=== PATIENT | female | born 1930 | race Caucasian/White ===

== ENCOUNTER 2017-01-15 10:48 | Inpatient (IN) ==
[2017-01-15] MEDS ORDERED: methylPREDNISolone SOD SUC 125 MG/2 ML VIAL IV STA (11:25)
[2017-01-15] MEDS ORDERED: MAGNESIUM SULF RIDER 2 GM in PREMIX 1 EACH IV STA (11:25)
--- NOTE | 2017-01-15 11:28 | EKG Report ---
Stationary ECG Study [facility] ER Test Date: 01/15/2017 11:03:06 AM Pat Name: MELIDA CADET Department: Room: 224 Gender: F Car Conditioner: : 1930 Requested by: Gonsalo Meadows Order Number: [id number] Reading MD: LANCE FRANKLIN Intervals [place] Rate: 73 P: 999 [place]: 144 QRS: -73 QRSD: 136 T: 104 QT: 372 QTc: 397 Interpretive Statements ELECTRONIC ATRIAL PACEMAKER At 73 bpm ELECTRONIC VENTRICULAR PACEMAKER NO FURTHER INTERPRETATION POSSIBLE ATYPICAL ECG Electronically Signed On 01-20-17 15:33:29 CDT by LANCE FRANKLIN [email or web address]
[2017-01-15] MEDS ORDERED: MAGNESIUM SULF RIDER 50 ML IV ONE (11:42)
[2017-01-15] MEDS ORDERED: methylPREDNISolone SOD SUC 125 MG/2 ML VIAL ONE (11:42)
[2017-01-15 11:49] LABS: Basophils # 0.1 10*3/uL (0.0-0.2); Basophils % 0.7 % (0.0-0.8); Eosinophils # 0.6 10*3/uL (0.0-0.87); Eosinophils % 6.4 % (0.00-10.9); Hematocrit 38.2 VOL% (35.7-47.0); Hemoglobin 12.4 GM/DL (12.0-16.0); Immature Granulocytes % 0.6 %; Immature Granulocytes Absolute 0.06 #; Lymphocytes # 1.3 10*3/uL (1.4-4.0); Lymphocytes % 14.1 % (21.3-54.2); Mean Corpuscular HGB Conc 32.5 GM/DL (32-36); Mean Corpuscular Hemoglobin 30 PG (27-34); Mean Corpuscular Volume 92.7 FL (87-102); Mean Platelet Volume 10.7 FL (9.6-12.0); Monocytes # 0.8 10*3/uL (0.11-0.8); Monocytes % 8.5 % (1.7-12.7); Neutrophils # 6.5 10*3/uL (1.4-7.4); Neutrophils % 69.7 % (38.7-73.9); Platelet Count 196 T/CUMM (130-400); Red Blood Count 4.12 MC/CUMM (3.8-5.5); Red Cell Distribution Width 14.1 % (9.3-17.3); White Blood Count 9.4 T/CUMM (4-12)
[2017-01-15] MEDS: ALBUTEROL 2.5 MG/3 ML NEB RESP TX SCH ×3 (11:53→12:33)
[2017-01-15 11:58] LABS: INR 1.2; PT Patient Result 12.7 SECS; Partial Thromboplastin Time 28.1 SECS (0-40)
[2017-01-15 12:12] LABS: Alanine Aminotransferase 15 U/L (13-56); Albumin 3.6 G/DL (3.4-5.0); Alkaline Phosphatase 86 U/L (45-117); Aspartate Amino Transferase 11 U/L (0-37); Bilirubin,Total < 0.39 MG/DL (0.2-1.0); Blood Urea Nitrogen 38 MG/DL (7-18); Calcium 8.8 MG/DL (8.5-10.1); Glucose 214 MG/DL (74-106); Magnesium 2.2 MG/DL (1.8-2.4); Potassium 4.3 MMOL/L (3.5-5.1); Sodium 136 MMOL/L (136-145); Total Protein 6.4 G/DL (6.4-8.3); Troponin I Only < 0.015 NG/ML (0.00-0.045)
--- NOTE | 2017-01-15 12:15 | Emergency Department Note ---
Bryan Claire Gwan, am scribing for, and in the presence of, Gonsalo Hendrickson MD 11:30 . Madhavi Claire James D, MD, personally performed the services described in this documentation, ascribed by Luis Adams in my presence, and it is both accurate and complete 215 . Arrival - Arrival Chief Complaint: Shortness of Breath Stated Complaint: cp ED Nursing Triage Note: Pt c/o SOB and cough x 2 days. Mode of Arrival: Wheelchair Limitations: No Limitations Source: Patient, Family (Daughter ), Old Records Reviewed, RN Notes Reviewed Time Seen by Provider: 01/15/17 11:20 - History of Present Illness HPI Narrative: Patient is a 86 y/o female who was brought into the ED via EMS from [facility] for further evaluation of SOb with an onset 2 days ago. Patient is accompanied by her daughter who confirmed that pt has been on a constant decline for the past 2 days. Patient is followed by and Dr. Villarreal. Pt has a PMHx of CHF, CAD, pacemaker, aneurysm, anxiety disorder, dyslipidemia, thyroid disorder, NIDDM and COPD. Onset (ago): day(s) Consistency: constant Severity: moderate Allergies/Adverse Reactions: Allergies Allergy/AdvReac Type Severity Reaction Status Date / Time No Known Allergies Allergy Verified 03/08/15 14:01 Home Medications: Home Medications Medication Instructions Recorded Confirmed Type Aspirin [Children's Aspirin] 81 mg PO DAILY 02/20/15 01/15/17 History Carvedilol 25 mg PO DAILY 02/20/15 01/15/17 History Cholecalciferol [Vitamin D3] 1,000 unit PO DAILY 02/20/15 01/15/17 History Ferrous Sulfate 325 mg PO DAILY 02/20/15 01/15/17 History Gabapentin Cap/Tab [Neurontin 300 mg PO BID 02/20/15 01/15/17 History Cap/Tab] Insulin Regular [HumuLIN R] 0 unit SUBCUT ACHS PRN 02/20/15 01/15/17 History Magnesium Chloride [Slow Mag] 64 mg PO DAILY 02/20/15 01/15/17 History Multivitamin [Daily Multiple 1 each PO DAILY 02/20/15 01/15/17 History Vitamin] HYDROcodone/ACETAMIN 7.5-325 1 tablet PO Q6H PRN 06/29/15 01/15/17 History [[place] 7.5-325] Levothyroxine Sodium 250 mcg PO QAM 06/29/15 01/15/17 History rOPINIRole [Requip] 0.25 mg PO BEDTIME 06/29/15 01/15/17 History Furosemide Tab [Lasix Tab] 40 mg PO DAILY #0 07/05/15 01/15/17 Rx Cholecalciferol (Vitamin D3) 2,000 unit PO BID 01/15/17 01/15/17 History [Vitamin D3] Digoxin Tab [Lanoxin Tab] 0.125 mg PO DAILY 01/15/17 01/15/17 History Magnesium Hydroxide Susp [Milk of 30 ml PO Q8H PRN 01/15/17 01/15/17 History Magnesia] Methenamine Hippurate [Hiprex] 1,000 gm PO BID 01/15/17 01/15/17 History Oxybutynin Chloride [Oxybutynin 10 mg PO DAILY 01/15/17 01/15/17 History Chloride ER] Pantoprazole Sodium 40 mg PO DAILY 01/15/17 01/15/17 History Pravastatin Sodium 10 mg PO DAILY 01/15/17 01/15/17 History glipiZIDE [Glipizide] 10 mg PO DAILY 01/15/17 01/15/17 History Medical,Surgical,& Family Hx - Medical History Cardio: History 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), Cardiac Dysrhythmia (a-fib), CHF, CAD, Hypertension, Pacemaker Psychological: History of: Anxiety Disorders Neurology: No history of: Seizures HEENT: History of: Eye Problem (cataracts bilaterally) Endocrine: History of: Diabetes Mellitus (NIDDM), Dyslipidemia, Thyroid Disorder (hypothyroid) Respiratory: History of: COPD, Respiratory Problems Renal: History of: Renal Problems (states she's had problems in past unspecified ) Gastrointestinal: History of: GERD, GI Problems (dysphagia, mild esophagitis) Musculoskeletal: History of: Back/Neck Problems, Musculoskeletal Problems ( general weakness; abnorm gait) Hematology: History of: Anemia, Bleeding Problems ("I bleed easy"), Clotting Problems - Surgical History Cardiac Surgeries: Sugical HX of: Internal Defibrillator Reproductive Surgeries: Surgical HX of;: Gynecologic Surgery, Hysterectomy - Family History Family History: Reports;: Family Cancer (colon-dad), Family Heart Disease (mom) , Family Hypertension (mother) Denies;: Family Diabetes, Family Stroke - Social History Smoking Status: Former smoker Exam Physical Examination: GENERAL: This is a ill-appearing white female in no apparent distress. VITAL SIGNS: Reviewed HEENT: Head is normocephalic and atraumatic. Pupils are equally round and reactive to light. Extraocular movement are intact. Oropharynx is benign with dry mucous membranes. NECK: Neck is soft and supple without tenderness. There are no masses. There is no lymphadenopathy. LUNGS: Lungs are clear to auscultation bilaterally. Chest rises symmetrically. There is no chest wall tenderness. Patient has wheezing bilaterally CV: Heart is regular rate and rhythm without murmurs, rubs, or gallops. ABDOMEN: Abdomen is soft, non-tender to palpation. There are no abnormal masses palpated. There is no organomegaly. Bowel sounds are present and active. SKIN: Skin is warm and dry. No rash. EXTREMITIES: Patient has full range of motion without tenderness. There +2 pitting edema to bilaterla LE NEUROLOGIC: Awake, alert, and oriented x4. Cranial nerves II through XII are grossly intact. There are no motorsensory deficits. PSYCHIATRIC: Normal affect. Normal mood. Vital Signs: Vital Signs Temperature 98.9 F 01/15/17 13:49 Pulse Rate 76 01/15/17 13:49 Respiratory Rate 24 01/15/17 13:49 Blood Pressure 143/87 01/15/17 13:49 O2 Sat by Pulse Oximetry 97 01/15/17 11:02 Course - Consultations Consultation #1: Discussed with hospitalist. Patient will be admitted to their service. Time: 14:55 Results - Labs CBC & BMP: 01/15/17 11:31 01/15/17 11:31 Lab Results: I have reviewed the patients labs Labs: Laboratory Tests 01/15/17 01/15/17 11:31 11:31 WBC 9.4 RBC 4.12 Hgb 12.4 Hct 38.2 Plt Count 196 Lymph % (Auto) 14.1 L Lymph # (Auto) 1.3 L INR 1.2 PT Patient/Control Mix 12.7 D Circ Anticoag PTT 28.1 Laboratory Tests 01/15/17 01/15/17 11:31 11:31 INR 1.2 Troponin I < 0.015 Laboratory Tests 01/15/17 01/15/17 11:31 11:31 Sodium 136 Potassium 4.3 Chloride 96 L Carbon Dioxide 33 H BUN 38 H Creatinine 1.50 H BUN/Creatinine Ratio 25.00 H Glucose 214 H Digoxin 1.10 Laboratory Tests 01/15/17 01/15/17 11:31 13:17 ABG pH 7.344 L ABG pCO2 56.6 H ABG pO2 72.2 L ABG HCO3 27.5 H ABG Total CO2 27.3 H ABG O2 Saturation 94.8 L ABG Base Excess 3.5 H B-Natriuretic Peptide 176 H Laboratory Tests 01/15/17 13:37 Urine pH 5.0 Ur Specific [place] 1.004 Urine Urobilinogen < 2.0 H Urine WBC <1 - EKG EKG results: interpreted by ERMD - Diagnostic Findings Procedure: Chest x-ray: image reviewed by me (Increased pulmonary markings bilaterally, AICD in position with leads in place.) Disposition Clinical Impression: Dyspnea, COPD (chronic obstructive pulmonary disease) with acute bronchitis Case discussed with: patient, patient's family Disposition: Still a Patient Condition: Stable Time of Disposition: 13:29
--- NOTE | 2017-01-15 12:45 | XRay Report ---
XR chest 1V portable Indication: Shortness of breath. Chest one view: Comparison 09/05/2015. Cardiomegaly, pacemaker/AICD and pulmonary hypoinflation are again shown. There is continued interstitial prominence of the lungs that is stable. No new infiltrates are shown. Impression: Persistent pulmonary hypoinflation and cardiomegaly. PROCEDURE INTERPRETED AT [facility] DEPARTMENT OF RADIOLOGY Final Report Signed by: Jimmy Karimi M.D.
[2017-01-15] MEDS ORDERED: ALBUTEROL 2.5 MG/3 ML NEB RESP TX STA (13:27)
[2017-01-15] MEDS ORDERED: cefTRIAXone 1,000 MG in SODIUM CHLORIDE 0.9% 100 ML IV STA (13:29)
[2017-01-15] MEDS ORDERED: cefTRIAXone 1,000 MG VIAL ONE (13:54)
[2017-01-15 13:57] LABS: ABG Base Excess 3.5 MMOL/L (-2.5-2.5); ABG HCO3 27.5 MMOL/L (20-26); ABG Oxygen Saturation 94.8 % (95-100); ABG PCO2 56.6 MM HG (35-48); ABG PH 7.344 (7.35-7.45); ABG PO2 72.2 MM HG (80-95); ABG TCO2 27.3 MMOL/L (23-27)
[2017-01-15 14:20] LABS: Apearance,Urine CLEAR (Clear); Bilirubin,Urine Negative (Negative); Blood, Urine Negative (Negative); Glucose,Urine (UA) Negative (Negative); Ketones,Urine Negative (Negative); Nitrite,Urine Negative (Negative); Protein,Urine Negative; Squamous Epithelial Cell,Urine Occasional /HPF (0-10); Urine Color Straw (Yellow); Urine Specific Gravity 1.004 (1.001-1.035); Urine Urobilinogen < 2.0 EU/DL (0.2-1.0); WBC,Urine <1 /HPF (0-6)
[2017-01-15] MEDS ORDERED: DEXTROSE 50% 25 GM/50 ML VIAL IV PRN ×2 (15:45)
[2017-01-15] MEDS ORDERED: ACETAMINOPHEN 325 MG TABLET PO PRN (15:45)
[2017-01-15] MEDS ORDERED: ALBUTEROL 2.5 MG/3 ML NEB RESP TX PRN (15:45)
[2017-01-15] MEDS ORDERED: GLUCAGON 1 MG VIAL IM PRN ×2 (15:45)
[2017-01-15] MEDS ORDERED: ONDANSETRON 4 MG/2 ML VIAL IV PRN (15:45)
[2017-01-15] MEDS ORDERED: MAGNESIUM HYDROXIDE SUSP 30 ML UDCUP PO PRN (15:48)
--- NOTE | 2017-01-15 15:53 | Hospitalist History & Physical ---
Assessment and Plan (1) CHF (congestive heart failure) Status: Acute Current Visit: No (2) Chronic systolic CHF (congestive heart failure) Status: Acute Current Visit: No (3) Dyspnea Status: Acute Current Visit: Yes (4) COPD (chronic obstructive pulmonary disease) with acute bronchitis Status: Acute Assessment and plan: Our plan for this patient will be admission to the hospital. We will schedule her on breathing treatments every 6 hours and as needed. Low-dose steroids will be used on this patient. Repeat a chest x-ray in 48 hours. Patient will be placed on IV antibiotics. Continue other home meds as appropriate. Going to check a KUB in the morning for this mild abdominal pain. Current Visit: Yes History of Present Illness Chief complaint: Shortness of breath History of present illness: Ms. Jimenez is a 86 year old female with past medical history significant for congestive heart failure this, COPD, and pacemaker placement who is in her normal state of generally poor health till approximately 2 days ago. Patient's daughter reports that she seems like she is getting more short winded. She is complaining about a cough where she did cough up some sputum earlier today. Patient also complaining about some neck pain radiating to her back. 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 Patient told her daughter that she is having trouble breathing. She is generally complaining about shortness of breath abdominal pain and chest pain. I was consulted to admit her through the emergency room. Discussed CODE STATUS with the daughter and she would not want her mother coded or put on life support. Home Medications Medication Instructions Recorded Confirmed Type Aspirin [Children's Aspirin] 81 mg PO DAILY 02/20/15 01/15/17 History Carvedilol 25 mg PO DAILY 02/20/15 01/15/17 History Cholecalciferol [Vitamin D3] 1,000 unit PO DAILY 02/20/15 01/15/17 History Ferrous Sulfate 325 mg PO DAILY 02/20/15 01/15/17 History Gabapentin Cap/Tab [Neurontin 300 mg PO BID 02/20/15 01/15/17 History Cap/Tab] Insulin Regular [HumuLIN R] 0 unit SUBCUT ACHS PRN 02/20/15 01/15/17 History Magnesium Chloride [Slow Mag] 64 mg PO DAILY 02/20/15 01/15/17 History Multivitamin [Daily Multiple 1 each PO DAILY 02/20/15 01/15/17 History Vitamin] HYDROcodone/ACETAMIN 7.5-325 1 tablet PO Q6H PRN 06/29/15 01/15/17 History [[place] 7.5-325] Levothyroxine Sodium 250 mcg PO QAM 06/29/15 01/15/17 History rOPINIRole [Requip] 0.25 mg PO BEDTIME 06/29/15 01/15/17 History Furosemide Tab [Lasix Tab] 40 mg PO DAILY #0 07/05/15 01/15/17 Rx Cholecalciferol (Vitamin D3) 2,000 unit PO BID 01/15/17 01/15/17 History [Vitamin D3] Digoxin Tab [Lanoxin Tab] 0.125 mg PO DAILY 01/15/17 01/15/17 History Magnesium Hydroxide Susp [Milk of 30 ml PO Q8H PRN 01/15/17 01/15/17 History Magnesia] Methenamine Hippurate [Hiprex] 1,000 gm PO BID 01/15/17 01/15/17 History Oxybutynin Chloride [Oxybutynin 10 mg PO DAILY 01/15/17 01/15/17 History Chloride ER] Pantoprazole Sodium 40 mg PO DAILY 01/15/17 01/15/17 History Pravastatin Sodium 10 mg PO DAILY 01/15/17 01/15/17 History glipiZIDE [Glipizide] 10 mg PO DAILY 01/15/17 01/15/17 History Allergies Allergy/AdvReac Type Severity Reaction Status Date / Time No Known Allergies Allergy Verified 03/08/15 14:01 Medical,Surgical,& Family Hx - Medical History Cardio: History 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), Cardiac Dysrhythmia (a-fib), CHF, CAD, Hypertension, Pacemaker Psychological: History of: Anxiety Disorders Neurology: No history of: Seizures HEENT: History of: Eye Problem (cataracts bilaterally) Endocrine: History of: Diabetes Mellitus (NIDDM), Dyslipidemia, Thyroid Disorder (hypothyroid) Respiratory: History of: COPD, Respiratory Problems Renal: History of: Renal Problems (states she's had problems in past unspecified ) Gastrointestinal: History of: GERD, GI Problems (dysphagia, mild esophagitis) Musculoskeletal: History of: Back/Neck Problems, Musculoskeletal Problems ( general weakness; abnorm gait) Hematology: History of: Anemia, Bleeding Problems ("I bleed easy"), Clotting Problems - Surgical History Cardiac Surgeries: Sugical HX of: Internal Defibrillator Reproductive Surgeries: Surgical HX of;: Gynecologic Surgery, Hysterectomy - Family History Family History: Reports;: Family Cancer (colon-dad), Family Heart Disease (mom) , Family Hypertension (mother) Denies;: Family Diabetes, Family Stroke - Social History Smoking Status: Former smoker Frequency of Alcohol Use: None Type of Drug Use: None ROS unobtainable: due to mental status Exam - Constitutional Vitals: Period Temp Pulse Resp BP Sys/Clay Pulse Ox Last 24 Hr 98.9 F-98.9 F 76-76 24-24 143-143/81-87 97 General appearance: normal weight, other (Patient is currently sleepy and hard to interact with) - Head Head exam: Present: normal inspection - Eye Pupils: Present: CRISTINA - ENT ENT exam: Present: normal exam - Neck Neck exam: Present: normal inspection - Respiratory Respiratory exam: Present: wheezes - Cardiovascular Cardiovascular exam: Present: regular rate and rhythm - GI/Abdominal GI/Abdominal exam: Present: normal bowel sounds, tenderness (Mild) - Extremities Exam Extremities exam: Present: other (Chronic venous stasis in lower extremities) - Back Exam Back exam: Present: normal inspection - Neurological Exam Neurological exam: Present: other (Currently patient is asleep) - Psychiatric Psychiatric exam: Present: normal affect - Skin Skin exam: Present: normal color Results - Labs CBC & BMP: 01/15/17 11:31 01/15/17 11:31
[2017-01-15] MEDS: INSULIN REGULAR 100 UNIT/ML SUBCUT SCH ×2 (17:44→21:10)
[2017-01-15] MEDS: ALBUTEROL/IPRATROPIUM 3 ML NEB RESP TX SCH (20:07)
[2017-01-15] MEDS ORDERED: METHENAMINE HIPPURATE 1 GM TABLET PO SCH (21:00)
[2017-01-15] MEDS: METHENAMINE HIPPURATE 1 GM TABLET PO SCH (21:06)
[2017-01-15] MEDS: GABAPENTIN 300 MG CAPSULE PO SCH (21:07)
[2017-01-15] MEDS: rOPINIRole 0.25 MG TABLET PO SCH (21:07)
[2017-01-15] MEDS: CHOLECALCIFEROL 1,000 UNIT TABLET PO SCH (21:07)
[2017-01-15] MEDS: methylPREDNISolone SOD SUC 40 MG/1 ML VIAL IV SCH (21:08)
[2017-01-15] MEDS: ENOXAPARIN 40 MG/0.4 ML SYRINGE SUBCUT SCH (21:11)
[2017-01-16] MEDS: ALBUTEROL/IPRATROPIUM 3 ML NEB RESP TX SCH ×4 (00:54→19:42)
[2017-01-16] MEDS: methylPREDNISolone SOD SUC 40 MG/1 ML VIAL IV SCH ×3 (04:14→21:50)
[2017-01-16 06:34] LABS: Basophils % 0.1 % (0.0-0.8); Eosinophils % 0.1 % (0.00-10.9); Hematocrit 37.1 VOL% (35.7-47.0); Hemoglobin 12.1 GM/DL (12.0-16.0); Immature Granulocytes % 0.7 %; Immature Granulocytes Absolute 0.06 #; Lymphocytes # 0.7 10*3/uL (1.4-4.0); Mean Corpuscular HGB Conc 32.6 GM/DL (32-36); Mean Corpuscular Hemoglobin 30 PG (27-34); Mean Corpuscular Volume 91.4 FL (87-102); Mean Platelet Volume 10.9 FL (9.6-12.0); Monocytes # 0.2 10*3/uL (0.11-0.8); Monocytes % 2.7 % (1.7-12.7); Neutrophils % 88.4 % (38.7-73.9); Platelet Count 192 T/CUMM (130-400); Red Blood Count 4.06 MC/CUMM (3.8-5.5); White Blood Count 9.1 T/CUMM (4-12)
[2017-01-16 06:56] LABS: Hypochromasia 1+; Lymphocytes 7 % (20-55); Ovalocytes Slight; Platelet Estimate Normal; Segmented Neutrophils 91 % (50-85); Total Cells Counted 100
[2017-01-16 07:10] LABS: Albumin 3.6 G/DL (3.4-5.0); Bilirubin,Total 0.7 MG/DL (0.2-1.0); Calcium 8.8 MG/DL (8.5-10.1); Potassium 4.3 MMOL/L (3.5-5.1); Total Protein 6.5 G/DL (6.4-8.3)
[2017-01-16] MEDS: LEVOTHYROXINE 25 MCG TABLET PO SCH (08:59)
[2017-01-16] MEDS: glipiZIDE 10 MG TABLET PO SCH (08:59)
[2017-01-16] MEDS ORDERED: LEVOTHYROXINE 200 MCG TABLET PO SCH (09:00)
[2017-01-16] MEDS ORDERED: CHOLECALCIFEROL 1,000 UNIT TABLET PO SCH (09:00)
[2017-01-16] MEDS: CARVEDILOL 25 MG TABLET PO SCH (09:05)
[2017-01-16] MEDS: FERROUS SULFATE 325 MG TABLET PO SCH (09:05)
[2017-01-16] MEDS: OXYBUTYNIN XL 5 MG TABLET PO SCH (09:05)
[2017-01-16] MEDS: MAGNESIUM CHLORIDE 64 MG TABLET PO SCH (09:05)
[2017-01-16] MEDS: FUROSEMIDE 40 MG TABLET PO SCH (09:06)
[2017-01-16] MEDS: DIGOXIN 0.125 MG TABLET PO SCH (09:06)
[2017-01-16] MEDS: GABAPENTIN 300 MG CAPSULE PO SCH ×2 (09:06→21:55)
[2017-01-16] MEDS: METHENAMINE HIPPURATE 1 GM TABLET PO SCH ×2 (09:06→21:56)
[2017-01-16] MEDS: PRAVASTATIN 20 MG TABLET PO SCH (09:07)
[2017-01-16] MEDS: ASPIRIN CHEW 81 MG TABLET PO SCH (09:08)
[2017-01-16] MEDS: MULTIVITAMIN (CENTRUM) TABLET PO SCH (09:08)
[2017-01-16] MEDS: CHOLECALCIFEROL 1,000 UNIT TABLET PO SCH ×2 (09:18→21:56)
[2017-01-16] MEDS: INSULIN REGULAR 100 UNIT/ML SUBCUT SCH ×4 (09:20→21:53)
[2017-01-16] MEDS: PANTOPRAZOLE 40 MG TABLET PO SCH (09:22)
--- NOTE | 2017-01-16 09:24 | XRay Report ---
XR KUB Indication: Generalized abdominal pain Comparison: Abdominal x-ray dated August 20, 2015 Technique: Frontal views of the abdomen Findings: Moderate fecal material noted throughout the colon may reflect constipation. Nonspecific nonobstructive bowel gas pattern. Diffuse osteopenia present. Mild left basilar atelectasis/scarring with question of small left pleural fluid. IMPRESSION: As above. PROCEDURE INTERPRETED AT [facility] DEPARTMENT OF RADIOLOGY Final Report Signed by: Dr Donnie Fung
[2017-01-16] MEDS: cefTRIAXone 1,000 MG in SODIUM CHLORIDE 0.9% 100 ML IV SCH (13:09)
--- NOTE | 2017-01-16 16:25 | Hospitalist Progress Note ---
Assessment and Plan - Time spent with patient Time spent with patient: Greater than 30 minutes (1) COPD (chronic obstructive pulmonary disease) with acute bronchitis Status: Acute Assessment and plan: Continue current management. Current Visit: Yes (2) CHF (congestive heart failure) Status: Acute Assessment and plan: Euvolemic, stable. Current Visit: No (3) Diabetes Status: Acute Assessment and plan: Continue current management. Current Visit: No Qualifiers: Diabetes mellitus type: type 2 Hospitalist: Subjective Interval history: Patient states she feels better this morning. Exam - Constitutional Vitals: Period Temp Pulse Resp BP Sys/Clay Pulse Ox Last 24 Hr 97.6 F-97.7 F 65-95 18-24 144-178/76-90 94-99 General appearance: no acute distress - Head Head exam: Present: normocephalic, atraumatic - Eye Eye exam: Present: EOMI Pupils: Present: CRISTINA - ENT ENT exam: Present: normal exam - Neck Neck exam: Present: normal inspection - Respiratory Respiratory exam: Present: clear to auscultation bilaterally. Absent: rhonchi, wheezes - Cardiovascular Cardiovascular exam: Present: regular rate and rhythm. Absent: gallop, rubs, systolic murmur - GI/Abdominal GI/Abdominal exam: Present: normal bowel sounds, soft. Absent: distended, firm , guarding, tenderness, rebound - Extremities Exam Extremities exam: Present: normal inspection. Absent: calf tenderness, edema Results - Labs CBC & BMP: 01/16/17 06:04 01/16/17 06:04 Lab Results: I have reviewed the past 24 hour labs
[2017-01-16] MEDS: ENOXAPARIN 40 MG/0.4 ML SYRINGE SUBCUT SCH (21:54)
[2017-01-16] MEDS: rOPINIRole 0.25 MG TABLET PO SCH (21:56)
[2017-01-17] MEDS: ALBUTEROL/IPRATROPIUM 3 ML NEB RESP TX SCH ×4 (01:52→20:26)
[2017-01-17] MEDS: methylPREDNISolone SOD SUC 40 MG/1 ML VIAL IV SCH ×3 (04:41→21:04)
[2017-01-17 06:21] LABS: Basophils % 0.1 % (0.0-0.8); Hematocrit 39.2 VOL% (35.7-47.0); Hemoglobin 12.4 GM/DL (12.0-16.0); Immature Granulocytes % 1.1 %; Immature Granulocytes Absolute 0.21 #; Lymphocytes # 0.8 10*3/uL (1.4-4.0); Lymphocytes % 4.2 % (21.3-54.2); Mean Corpuscular HGB Conc 31.6 GM/DL (32-36); Mean Corpuscular Hemoglobin 30 PG (27-34); Mean Corpuscular Volume 93.8 FL (87-102); Mean Platelet Volume 11.1 FL (9.6-12.0); Monocytes # 0.7 10*3/uL (0.11-0.8); Monocytes % 3.5 % (1.7-12.7); Neutrophils # 17.1 10*3/uL (1.4-7.4); Neutrophils % 91.1 % (38.7-73.9); Platelet Count 218 T/CUMM (130-400); Red Blood Count 4.18 MC/CUMM (3.8-5.5); Red Cell Distribution Width 14.3 % (9.3-17.3); White Blood Count 18.8 T/CUMM (4-12)
[2017-01-17 06:50] LABS: Calcium 9.2 MG/DL (8.5-10.1); Osmolality,Calculated 293.8 MOS/KG (273-304); Potassium 4.1 MMOL/L (3.5-5.1)
[2017-01-17 06:55] LABS: Hypochromasia 1+; Lymphocytes 2 % (20-55); Platelet Estimate Normal; Segmented Neutrophils 91 % (50-85); Total Cells Counted 100
--- NOTE | 2017-01-17 07:57 | XRay Report ---
XR chest 1V portable Indication: SOB Comparison: Chest x-ray dated January 15, 2017 Technique: Single frontal view of the chest Findings: Worsened cardiomegaly with cardiac pacemaker apparatus again noted. Mildly progressed scattered small opacities within the bilateral lungs as well as patchy opacification within the left greater than right lung base suggesting worsened pneumonia or pulmonary edema. There is probable small bilateral pleural fluid, greater on the left. Osseous and starting soft tissue structures appear grossly unchanged. IMPRESSION: As above. PROCEDURE INTERPRETED AT [facility] DEPARTMENT OF RADIOLOGY Final Report Signed by: Dr Donnie Fung
[2017-01-17] MEDS: LEVOTHYROXINE 25 MCG TABLET PO SCH (08:03)
[2017-01-17] MEDS: OXYBUTYNIN XL 5 MG TABLET PO SCH (09:50)
[2017-01-17] MEDS: MULTIVITAMIN (CENTRUM) TABLET PO SCH (09:50)
[2017-01-17] MEDS: CHOLECALCIFEROL 1,000 UNIT TABLET PO SCH ×2 (09:51→21:05)
[2017-01-17] MEDS: PRAVASTATIN 20 MG TABLET PO SCH (09:51)
[2017-01-17] MEDS: MAGNESIUM CHLORIDE 64 MG TABLET PO SCH (09:52)
[2017-01-17] MEDS: glipiZIDE 10 MG TABLET PO SCH (09:53)
[2017-01-17] MEDS: GABAPENTIN 300 MG CAPSULE PO SCH ×2 (09:53→21:04)
[2017-01-17] MEDS: CARVEDILOL 25 MG TABLET PO SCH (09:53)
[2017-01-17] MEDS: ASPIRIN CHEW 81 MG TABLET PO SCH (09:53)
[2017-01-17] MEDS: FERROUS SULFATE 325 MG TABLET PO SCH (09:53)
[2017-01-17] MEDS: METHENAMINE HIPPURATE 1 GM TABLET PO SCH ×2 (09:54→21:04)
[2017-01-17] MEDS: DIGOXIN 0.125 MG TABLET PO SCH (09:54)
[2017-01-17] MEDS: FUROSEMIDE 40 MG TABLET PO SCH (09:55)
[2017-01-17] MEDS: PANTOPRAZOLE 40 MG TABLET PO SCH (09:56)
[2017-01-17] MEDS: INSULIN REGULAR 100 UNIT/ML SUBCUT SCH ×4 (12:05→21:12)
--- NOTE | 2017-01-17 13:23 | Hospitalist Progress Note ---
Assessment and Plan - Time spent with patient Time spent with patient: Greater than 30 minutes (1) COPD (chronic obstructive pulmonary disease) with acute bronchitis Status: Acute Assessment and plan: Continue current management. Current Visit: Yes (2) CHF (congestive heart failure) Status: Acute Assessment and plan: Euvolemic, stable. Current Visit: No (3) Diabetes Status: Acute Assessment and plan: Continue current management. Current Visit: No Qualifiers: Diabetes mellitus type: type 2 Hospitalist: Subjective Interval history: She hasnt had a BM. She also wants to go home. She complains of post nasal drip and coughing. Exam - Constitutional Vitals: Period Temp Pulse Resp BP Sys/Clay Pulse Ox Last 24 Hr 97.3 F-98.3 F 78-114 18-24 139-169/63-95 93-99 General appearance: no acute distress - Head Head exam: Present: normocephalic, atraumatic - Eye Eye exam: Present: EOMI Pupils: Present: CRISTINA - ENT ENT exam: Present: normal exam - Neck Neck exam: Present: normal inspection - Respiratory Respiratory exam: Present: clear to auscultation bilaterally. Absent: rhonchi, wheezes - Cardiovascular Cardiovascular exam: Present: regular rate and rhythm. Absent: gallop, rubs, systolic murmur - GI/Abdominal GI/Abdominal exam: Present: normal bowel sounds, soft. Absent: distended, firm , guarding, tenderness, rebound - Extremities Exam Extremities exam: Present: normal inspection. Absent: calf tenderness, edema Results - Labs CBC & BMP: 01/17/17 05:35 01/17/17 05:35 Lab Results: I have reviewed the past 24 hour labs
[2017-01-17] MEDS: cefTRIAXone 1,000 MG in SODIUM CHLORIDE 0.9% 100 ML IV SCH (13:30)
[2017-01-17] MEDS: rOPINIRole 0.25 MG TABLET PO SCH (21:04)
[2017-01-17] MEDS: ENOXAPARIN 40 MG/0.4 ML SYRINGE SUBCUT SCH (21:05)
[2017-01-18] MEDS: ALBUTEROL/IPRATROPIUM 3 ML NEB RESP TX SCH ×2 (00:11→07:11)
[2017-01-18] MEDS: methylPREDNISolone SOD SUC 40 MG/1 ML VIAL IV SCH ×2 (05:24→11:38)
[2017-01-18] MEDS: INSULIN REGULAR 100 UNIT/ML SUBCUT SCH ×2 (09:57→13:10)
[2017-01-18] MEDS: CHOLECALCIFEROL 1,000 UNIT TABLET PO SCH (09:58)
[2017-01-18] MEDS: FERROUS SULFATE 325 MG TABLET PO SCH (09:59)
[2017-01-18] MEDS: MAGNESIUM CHLORIDE 64 MG TABLET PO SCH (09:59)
[2017-01-18] MEDS: FUROSEMIDE 40 MG TABLET PO SCH (10:00)
[2017-01-18] MEDS: GABAPENTIN 300 MG CAPSULE PO SCH (10:00)
[2017-01-18] MEDS: METHENAMINE HIPPURATE 1 GM TABLET PO SCH (10:00)
[2017-01-18] MEDS: LEVOTHYROXINE 25 MCG TABLET PO SCH (10:01)
[2017-01-18] MEDS: DIGOXIN 0.125 MG TABLET PO SCH (10:01)
[2017-01-18] MEDS: glipiZIDE 10 MG TABLET PO SCH (10:01)
[2017-01-18] MEDS: CARVEDILOL 25 MG TABLET PO SCH (10:03)
[2017-01-18] MEDS: ASPIRIN CHEW 81 MG TABLET PO SCH (10:03)
[2017-01-18] MEDS: PANTOPRAZOLE 40 MG TABLET PO SCH (10:09)
[2017-01-18] MEDS: PRAVASTATIN 20 MG TABLET PO SCH (10:10)
[2017-01-18] MEDS: MULTIVITAMIN (CENTRUM) TABLET PO SCH (10:10)
[2017-01-18] MEDS: OXYBUTYNIN XL 5 MG TABLET PO SCH (10:11)
--- NOTE | 2017-01-18 11:15 | Discharge Summary ---
Hospital Course - Hospital Course Hospital Course: Ms. Jimenez was admitted for evaluation of shortness of breath. She was found to have acute on chronic COPD. She was initiated on the COPD pathway and had a dramatic improvement in her breathing. Patient was found to have some constipation on KUB and had a large bowel movement with laxatives. By discharge her breathing was back to baseline and she had met maximum benefit of hospitalization. I spent 38 minutes coordinating this discharge. - Time spent with patient Time with patient DS: Greater than 30 minutes Diagnosis - Discharge Diagnosis (1) COPD (chronic obstructive pulmonary disease) with acute bronchitis Status: Acute (2) CHF (congestive heart failure) Status: Acute (3) Diabetes Status: Acute Discharge Plan - Discharge Data Disposition: Disch To Home/Self Care Condition at Discharge: Stable Discharge Diet: advance to your usual diet Activity: resume usual activities as tolerated - Discharge Medications New Levofloxacin Tab [Levaquin Tab] 500 mg PO DAILY #6 tablet predniSONE TAB [PredniSONE] 50 mg PO DAILY #3 tablet Continue Insulin Regular [HumuLIN R] 0 unit SUBCUT ACHS PRN PRN Reason: Glucose Management Magnesium Chloride [Slow Mag] 64 mg PO DAILY Ferrous Sulfate 325 mg PO DAILY Aspirin [Children's Aspirin] 81 mg PO DAILY Multivitamin [Daily Multiple Vitamin] 1 each PO DAILY Carvedilol 25 mg PO DAILY Gabapentin Cap/Tab [Neurontin Cap/Tab] 300 mg PO BID rOPINIRole [Requip] 0.25 mg PO BEDTIME HYDROcodone/ACETAMIN 7.5-325 [[place] 7.5-325] 1 tablet PO Q6H PRN PRN Reason: Pain Mild (1-3) Furosemide Tab [Lasix Tab] 40 mg PO DAILY #0 Pantoprazole Sodium 40 mg PO DAILY Magnesium Hydroxide Susp [Milk of Magnesia] 30 ml PO Q8H PRN PRN Reason: Constipation Methenamine Hippurate [Hiprex] 1,000 gm PO BID Oxybutynin Chloride [Oxybutynin Chloride ER] 10 mg PO DAILY Digoxin Tab [Lanoxin Tab] 0.125 mg PO DAILY Levothyroxine Sodium 25 mcg PO DAILY Pravastatin Sodium 10 mg PO DAILY glipiZIDE [Glipizide] 10 mg PO DAILY Cholecalciferol (Vitamin D3) [Vitamin D3] 2,000 unit PO BID - Follow Up or Referral - Forms/Instructions Exam - Constitutional Vitals: Period Temp Pulse Resp BP Sys/Clay Pulse Ox Last 24 Hr 97.3 F-98.6 F 77-115 18-24 130-169/72-84 93-99 General appearance: normal weight, no acute distress - Head Head exam: Present: normal inspection, normocephalic, atraumatic - Eye Eye exam: Present: EOMI Pupils: Present: CRISTINA - ENT ENT exam: Present: normal exam - Neck Neck exam: Present: normal inspection - Respiratory Respiratory exam: Present: clear to auscultation bilaterally. Absent: accessory muscle use, prolonged expiratory phase, wheezes - Cardiovascular Cardiovascular exam: Present: regular rate and rhythm. Absent: bradycardia, irregular rhythm, systolic murmur - GI/Abdominal GI/Abdominal exam: Present: normal bowel sounds. Absent: ascites, hypoactive bowel sounds, tenderness - Extremities Exam Extremities exam: Present: normal inspection Discharge Results Labs on day of discharge: Labs from last 24 hours 01/18/17 01/17/17 01/17/17 08:05 21:04 16:54 POC Glucose 211 H 244 H 309 H 01/17/17 11:24 POC Glucose 337 H DS: Provider Date of admission: 01/15/17 15:09 Primary care physician: . No PCP Attending physician on admission: Jimmy Medina MD Consults: 01/15/17 16:41 Consult to Pastoral Services [CONS] Routine Comment: Pastoral Screen: Request Ingot Stripper Visit Pastoral Screen Source of Request: Family Discharging clinician: Kena Mckeon MD Expected date of discharge: 01/18/17
[2017-01-18 21:10] VITALS: BP 141/62
== END 2017-01-18 13:30 | disposition home or self-care (01) | DRG 191 ==
LOC: N.ED 10:48 → N.EDINP 15:09 → SUATTDRO 15:09 → N.2E 16:10
PROVIDERS: ADMIT Internal Medicine; ATTEND Internal Medicine

== ENCOUNTER 2017-02-06 14:57 | Inpatient (IN) ==
[2017-02-06] MEDS ORDERED: CLINDAMYCIN INJ 600 MG in PREMIX 1 EACH IV STA (15:35)
--- NOTE | 2017-02-06 15:54 | XRay Report ---
XR chest 1V portable Indication: SOB/fever Comparison: Chest x-ray dated January 17, 2017 Technique: Single frontal view of the chest. Findings: Continued moderate to marked cardiomegaly. Cardiac pacemaker apparatus appears grossly unchanged. There is nonspecific prominence of lung markings suspicious for interstitial pulmonary edema. Chronic/fibrotic change and interstitial pneumonia may have similar appearance. Suspect trace bilateral pleural fluid. Visualized osseous and surrounding soft tissue structures appear grossly unchanged. IMPRESSION: As above. PROCEDURE INTERPRETED AT [facility] DEPARTMENT OF RADIOLOGY Final Report Signed by: Dr Donnie Fung
--- NOTE | 2017-02-06 16:10 | Ultrasound Report ---
History: Lower extremity pain, edema, and redness Date: 02/06/2017 Study: Bilateral lower extremity color-flow venous Doppler study Comparison exam: July 04, 2015 exam available Color Doppler, wave form analysis, and compression analysis of the deep veins of both lower extremities from the common femoral vein level through the popliteal vein level shows that the veins are readily compressible. There is no abnormal intraluminal material to suggest thrombus. Waveform analysis is unremarkable. Ultrasound images were captured and archived Impression: Normal bilateral lower extremity color flow venous Doppler study. No evidence of acute DVT PROCEDURE INTERPRETED AT [facility] DEPARTMENT OF RADIOLOGY Final Report Signed by: Dr. Vielka Casey
[2017-02-06 16:20] LABS: Basophils # 0.1 10*3/uL (0.0-0.2); Basophils % 0.7 % (0.0-0.8); Eosinophils # 0.2 10*3/uL (0.0-0.87); Eosinophils % 2.7 % (0.00-10.9); Hematocrit 34.8 VOL% (35.7-47.0); Hemoglobin 11.3 GM/DL (12.0-16.0); Immature Granulocytes % 0.4 %; Immature Granulocytes Absolute 0.03 #; Lymphocytes # 0.8 10*3/uL (1.4-4.0); Lymphocytes % 10.7 % (21.3-54.2); Mean Corpuscular HGB Conc 32.5 GM/DL (32-36); Mean Corpuscular Hemoglobin 31 PG (27-34); Mean Corpuscular Volume 94.1 FL (87-102); Mean Platelet Volume 10.5 FL (9.6-12.0); Monocytes # 0.6 10*3/uL (0.11-0.8); Monocytes % 7.3 % (1.7-12.7); Neutrophils # 5.9 10*3/uL (1.4-7.4); Neutrophils % 78.2 % (38.7-73.9); Platelet Count 187 T/CUMM (130-400); Red Cell Distribution Width 14.2 % (9.3-17.3); White Blood Count 7.5 T/CUMM (4-12)
[2017-02-06 16:43] LABS: Albumin 3.6 G/DL (3.4-5.0); Bilirubin,Total 0.4 MG/DL (0.2-1.0); Calcium 9.1 MG/DL (8.5-10.1); Osmolality,Calculated 279.2 MOS/KG (273-304); Potassium 4.8 MMOL/L (3.5-5.1); Total Protein 6.4 G/DL (6.4-8.3)
[2017-02-06] MEDS ORDERED: CLINDAMYCIN INJ 50 ML IV ONE ×2 (16:56→17:09)
--- NOTE | 2017-02-06 17:34 | Emergency Department Note ---
Juan Claire Mantricia, am scribing for, and in the presence of, Dirk Decker MD 15:41. Brianne Claire Phillip K, MD, personally performed the services described in this documentation, ascribed by Javier Martinez in my presence, and it is both accurate and complete [id number] . Arrival - Arrival Chief Complaint: Extremity Problem Stated Complaint: leg pain ED Nursing Triage Note: Brought in per EMS from [facility] with c/o redness and pain to right lower leg and left foot onst "couple of days " ago. Right leg/left foot painful to touch. Denies injury. Denies fever. Mode of Arrival: Stretcher Limitations: No Limitations Source: Patient Time Seen by Provider: 02/06/17 15:26 - History of Present Illness HPI Narrative: Pt is an 86 y/o white female arriving to ED by EMS from [facility] with c/o redness and pain to RLE and left foot that onset a "couple of days ago." Pt only c/o a sore stomach along with the LE pain. She reports no other complaints to ED. Onset (ago): day(s) Consistency: constant Date of Last Menstrual Period: PM Allergies/Adverse Reactions: Allergies Allergy/AdvReac Type Severity Reaction Status Date / Time No Known Allergies Allergy Verified 02/06/17 15:03 Home Medications: Home Medications Medication Instructions Recorded Confirmed Type Carvedilol 25 mg PO DAILY 02/20/15 02/06/17 History Ferrous Sulfate 325 mg PO DAILY 02/20/15 02/06/17 History Gabapentin Cap/Tab [Neurontin 300 mg PO BID 02/20/15 02/06/17 History Cap/Tab] Insulin Regular [HumuLIN R] 3 - 15 unit SUBCUT ACHS PRN 02/20/15 02/06/17 History Magnesium Chloride [Slow Mag] 64 mg PO DAILY 02/20/15 02/06/17 History Multivitamin [Daily Multiple 1 each PO DAILY 02/20/15 02/06/17 History Vitamin] HYDROcodone/ACETAMIN 7.5-325 1 tablet PO Q6H PRN 06/29/15 02/06/17 History [[place] 7.5-325] rOPINIRole [Requip] 0.25 mg PO BEDTIME 06/29/15 02/06/17 History Furosemide Tab [Lasix Tab] 40 mg PO DAILY #0 07/05/15 02/06/17 Rx Cholecalciferol (Vitamin D3) 2,000 unit PO BID 01/15/17 02/06/17 History [Vitamin D3] Digoxin Tab [Lanoxin Tab] 0.125 mg PO DAILY 01/15/17 02/06/17 History Levothyroxine Sodium 25 mcg PO QAM 01/15/17 02/06/17 History Magnesium Hydroxide Susp [Milk of 30 ml PO Q8H PRN 01/15/17 02/06/17 History Magnesia] Methenamine Hippurate [Hiprex] 1,000 mg PO BID 01/15/17 02/06/17 History Oxybutynin Chloride [Oxybutynin 10 mg PO DAILY 01/15/17 02/06/17 History Chloride ER] Pantoprazole Sodium 40 mg PO DAILY 01/15/17 02/06/17 History Pravastatin Sodium 10 mg PO DAILY 01/15/17 02/06/17 History glipiZIDE [Glipizide] 10 mg PO DAILY 01/15/17 02/06/17 History Clindamycin HCl [Clindamycin Cap] 300 mg PO Q8HR 02/06/17 02/06/17 History Review of System - Review of System 12 point system: reviewed and no additional remarkable complaints except as stated - Review of System Constitutional: Absent: chills, diaphoresis, fever Eyes: Absent: discharge, pain Head/Ears/Nose/Throat: Absent: earache Respiratory: Absent: cough Cardiovascular: Absent: chest pain, palpitations Gastrointestinal: Present: abdominal pain (sore). Absent: nausea, vomiting Genitourinary female: Absent: abnormal menses, dysuria Musculoskeletal: Present: leg pain (RLE and left foot). 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), Cardiac Dysrhythmia (a-fib), CHF, CAD, Hypertension, Pacemaker Psychological: History of: Anxiety Disorders Neurology: No history of: Seizures HEENT: History of: Eye Problem (cataracts bilaterally) Endocrine: History of: Diabetes Mellitus (NIDDM), Dyslipidemia, Thyroid Disorder (hypothyroid) Respiratory: History of: COPD, Respiratory Problems Renal: History of: Renal Problems (states she's had problems in past unspecified ) Gastrointestinal: History of: GERD, GI Problems (dysphagia, mild esophagitis) Musculoskeletal: History of: Back/Neck Problems, Musculoskeletal Problems ( general weakness; abnorm gait) Hematology: History of: Anemia, Bleeding Problems ("I bleed easy"), Clotting Problems - Surgical History Cardiac Surgeries: Sugical HX of: Internal Defibrillator Reproductive Surgeries: Surgical HX of;: Gynecologic Surgery, Hysterectomy - Family History Family History: Reports;: Family Cancer (colon-dad), Family Heart Disease (mom) , Family Hypertension (mother) Denies;: Family Diabetes, Family Stroke - Social History Smoking Status: Former smoker Frequency of Alcohol Use: None Type of Drug Use: None Exam Vital Signs: Vital Signs Temperature 97.6 F 02/06/17 14:57 Pulse Rate 69 02/06/17 17:01 Respiratory Rate 27 H 02/06/17 17:01 Blood Pressure 163/96 02/06/17 17:01 O2 Sat by Pulse Oximetry 100 02/06/17 17:01 - General General appearance: alert, in no apparent distress - Head Head exam: Present: atraumatic, normocephalic, normal inspection - Eye Eye exam: Present: normal appearance, PERRL, EOMI - ENT ENT exam: Present: normal exam, normal oropharynx, mucous membranes dry, TM's normal bilaterally, normal external ear exam - Neck Neck exam: Present: normal inspection, full ROM, trachea midline. Absent: tenderness - Chest Chest inspection: Present: normal inspection, symmetric chest wall rise. Absent : tenderness - Respiratory Respiratory exam: Present: normal lung sounds bilaterally - Cardiovascular Cardiovascular exam: Present: regular rate, normal rhythm, normal heart sounds - Abdominal Exam Abdominal exam: Present: soft, tenderness, normal bowel sounds. Absent: distention, guarding, rebound - Extremities Exam Extremities exam: Present: tenderness, other (bullae to dorsal aspect of left leg; increased warmth and redness up to right knee; left leg edema up to mid- calf with erythema) - Back Exam Back exam: Present: normal inspection, full ROM. Absent: tenderness - Neurological Exam Neurological exam: Present: alert, oriented X3, CN II-XII intact, normal gait, reflexes normal - Psychiatric Psychiatric exam: Present: normal affect, normal mood - Skin Skin exam: Present: warm, dry, intact, normal color, erythema Course Course Narrative: Patient discussed with the hospitalist will admit for IV antibiotics. Results - Labs CBC & BMP: 02/06/17 16:05 02/06/17 16:05 Lab Results: I have reviewed the patients labs Labs: Laboratory Tests 02/06/17 02/06/17 16:05 16:05 RBC 3.70 L Hgb 11.3 L Hct 34.8 L Neut % (Auto) 78.2 H Lymph % (Auto) 10.7 L Lymph # (Auto) 0.8 L Sodium 134 L Chloride 93 L Carbon Dioxide 33 H BUN 34 H Creatinine 1.60 H BUN/Creatinine Ratio 21.00 H Glucose 169 H - Diagnostic Findings Procedure: Chest x-ray: report reviewed by me (Continued moderate to marked cardiomegaly. Cardiac pacemaker apparatus appears grossly unchanged. There is nonspecific prominence of lung markings suspicious for interstitial pulmonary edema. Chronic/fibrotic change and interstitial pneumonia may have similar appearance. Suspect trace bilateral pleural fluid. Visualized osseous and surrounding soft tissue structures appear grossly unchanged. ) Disposition Clinical Impression: Cellulitis Case discussed with: patient, patient's family Disposition: Still a Patient Condition: Guarded Additional Instructions: Admit to the hospitalist.
[2017-02-06 17:50] LABS: Apearance,Urine CLEAR (Clear); Bilirubin,Urine Negative (Negative); Blood, Urine Negative (Negative); Glucose,Urine (UA) Negative (Negative); Ketones,Urine Negative (Negative); Mucus,Urine Occasional /LPF (Occasional); Nitrite,Urine Negative (Negative); Protein,Urine Negative; RBC,Urine <1 /HPF (0-4); Urine Color Straw (Yellow); Urine Specific Gravity 1.004 (1.001-1.035); Urine Urobilinogen < 2.0 EU/DL (0.2-1.0)
--- NOTE | 2017-02-06 17:59 | Hospitalist History & Physical ---
Assessment and Plan (1) Cellulitis Status: Acute Assessment and plan: We will start empiric antibiotic coverage. We will consult wound care for further recommendations. Current Visit: Yes Qualifiers: Site of cellulitis: extremity Site of cellulitis of extremity: lower extremity Laterality: unspecified laterality Qualified Code(s): L03.119 - Cellulitis of unspecified part of limb (2) Acute on chronic renal failure Status: Acute Assessment and plan: BUN and creatinine noted at 34 and 1.60 a moderate change since the previous admission on 01/17 which was noted at 46 and 1.70. We will monitor renal function and avoid nephrotoxic agents. Current Visit: No (3) Atrial fibrillation Status: Acute Assessment and plan: Rate is controlled at the time of admission. We will continue to monitor. Current Visit: No History of Present Illness Chief complaint: Edema to bilateral lower extremities History of present illness: This is a very pleasant 86-year-old female that presented to the ED at [facility] from [facility] this afternoon for evaluation of bilateral lower extremity edema and erythema. The patient has a very complex medical history significant for diabetes, cardiomyopathy, congestive heart failure, anemia, erosive gastritis, constipation, atrial fibrillation, chronic obstructive pulmonary disease, cataracts, hypothyroidism, dyslipidemia, stage IV chronic kidney disease, cellulitis, and stasis ulcerations to the bilateral lower extremities. Patient has a surgical history of internal defibrillator placement and hysterectomy. The patient has chronic venous stasis ulcers bilaterally. The nursing staff became concerned when the areas became red and and hot to the touch. They reported an onset of the above symptoms 2 days prior to presentation. She was evaluated there and sent to the ED for further evaluation. Labs were obtained at the time of presentation, which reported a hemoglobin of 11.3, hematocrit 34.8, neutrophils of 78.2, lymphocytes of 10.7, sodium of 134, chloride of 93, carbon dioxide at 33, BUN of 34, creatinine of 1.60, glucose of 169. Urinalysis was obtained which was significant for greater than 2.0 urobilinogen. Chest x-ray was obtained which reported continue moderate to marked cardiomegaly, cardiac pacemaker apparatus noted and appears grossly unchanged, a nonspecific prominence of lung markings suspicious for interstitial pulmonary edema, chronic fibrotic changes and interstitial pneumonia may have similar-appearance, suspect trace bilateral pleural fluid, visualized osseous and surrounding tissue structures appear grossly unchanged. Bilateral venous Doppler studies were essentially unremarkable, reported no evidence of acute deep vein thrombosis. After brief discussion with both Dr. Decker and , the patient will be admitted to the hospitalist services for continuation of care. Home Medications Medication Instructions Recorded Confirmed Type Carvedilol 25 mg PO DAILY 02/20/15 02/06/17 History Ferrous Sulfate 325 mg PO DAILY 02/20/15 02/06/17 History Gabapentin Cap/Tab [Neurontin 300 mg PO BID 02/20/15 02/06/17 History Cap/Tab] Insulin Regular [HumuLIN R] 3 - 15 unit SUBCUT ACHS PRN 02/20/15 02/06/17 History Magnesium Chloride [Slow Mag] 64 mg PO DAILY 02/20/15 02/06/17 History Multivitamin [Daily Multiple 1 each PO DAILY 02/20/15 02/06/17 History Vitamin] HYDROcodone/ACETAMIN 7.5-325 1 tablet PO Q6H PRN 06/29/15 02/06/17 History [[place] 7.5-325] rOPINIRole [Requip] 0.25 mg PO BEDTIME 06/29/15 02/06/17 History Furosemide Tab [Lasix Tab] 40 mg PO DAILY #0 07/05/15 02/06/17 Rx Cholecalciferol (Vitamin D3) 2,000 unit PO BID 01/15/17 02/06/17 History [Vitamin D3] Digoxin Tab [Lanoxin Tab] 0.125 mg PO DAILY 01/15/17 02/06/17 History Levothyroxine Sodium 25 mcg PO QAM 01/15/17 02/06/17 History Magnesium Hydroxide Susp [Milk of 30 ml PO Q8H PRN 01/15/17 02/06/17 History Magnesia] Methenamine Hippurate [Hiprex] 1,000 mg PO BID 01/15/17 02/06/17 History Oxybutynin Chloride [Oxybutynin 10 mg PO DAILY 01/15/17 02/06/17 History Chloride ER] Pantoprazole Sodium 40 mg PO DAILY 01/15/17 02/06/17 History Pravastatin Sodium 10 mg PO DAILY 01/15/17 02/06/17 History glipiZIDE [Glipizide] 10 mg PO DAILY 01/15/17 02/06/17 History Clindamycin HCl [Clindamycin Cap] 300 mg PO Q8HR 02/06/17 02/06/17 History Allergies Allergy/AdvReac Type Severity Reaction Status Date / Time No Known Allergies Allergy Verified 02/06/17 15:03 Medical,Surgical,& Family Hx - Medical History Cardio: History 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), Cardiac Dysrhythmia (a-fib), CHF, CAD, Hypertension, Pacemaker Psychological: History of: Anxiety Disorders Neurology: No history of: Seizures HEENT: History of: Eye Problem (cataracts bilaterally) Endocrine: History of: Diabetes Mellitus (NIDDM), Dyslipidemia, Thyroid Disorder (hypothyroid) Respiratory: History of: COPD, Respiratory Problems Renal: History of: Renal Problems (states she's had problems in past unspecified ) Gastrointestinal: History of: GERD, GI Problems (dysphagia, mild esophagitis) Musculoskeletal: History of: Back/Neck Problems, Musculoskeletal Problems ( general weakness; abnorm gait) Hematology: History of: Anemia, Bleeding Problems ("I bleed easy"), Clotting Problems - Surgical History Cardiac Surgeries: Sugical HX of: Internal Defibrillator Reproductive Surgeries: Surgical HX of;: Gynecologic Surgery, Hysterectomy - Family History Family History: Reports;: Family Cancer (colon-dad), Family Heart Disease (mom) , Family Hypertension (mother) Denies;: Family Diabetes, Family Stroke - Social History Smoking Status: Former smoker Frequency of Alcohol Use: None Type of Drug Use: None Exam - Constitutional Vitals: Period Temp Pulse Resp BP Sys/Clay Pulse Ox Last 24 Hr 97.6 F 69-94 20-31 153-169/68-125 96-100 General appearance: normal weight - Head Head exam: Present: normal inspection, normocephalic, atraumatic - Eye Eye exam: Present: EOMI. Absent: conjunctival injection, nystagmus Pupils: Present: CRISTINA, normal accommodation. Absent: constricted - ENT ENT exam: Present: normal exam, normal external ear exam, normal oropharynx - Neck Neck exam: Present: normal inspection. Absent: lymphadenopathy, meningismus, thyromegaly - Respiratory Respiratory exam: Present: clear to auscultation bilaterally. Absent: rales, rhonchi, stridor, wheezes - Cardiovascular Cardiovascular exam: Present: regular rate and rhythm. Absent: carotid bruit, diastolic murmur, gallop, JVD, rubs, systolic murmur (pacemaker noted to left chest wall) - GI/Abdominal GI/Abdominal exam: Present: normal bowel sounds, soft. Absent: firm, guarding, mass, rebound - Extremities Exam Extremities exam: Present: edema (+4 edema to bilateral lower extremties; pulses are present;gross erythema with redness and weeping noted) - Skin Skin exam: Present: normal color, erythema (Bilateral lower extremities), other (Weeping noted to the bilateral lower extremity) Results - Labs CBC & BMP: 02/06/17 16:05 02/06/17 16:05 Lab Results: I have reviewed the past 24 hour labs
[2017-02-06] MEDS ORDERED: DEXTROSE 50% 25 GM/50 ML VIAL IV PRN ×2 (18:49)
[2017-02-06] MEDS ORDERED: GLUCAGON 1 MG VIAL IM PRN ×2 (18:49)
[2017-02-06] MEDS ORDERED: MAGNESIUM HYDROXIDE SUSP 30 ML UDCUP PO PRN (20:12)
[2017-02-06] MEDS: CEFTAROLINE 300 MG in SODIUM CHLORIDE 0.9% 100 ML IV SCH (20:28)
[2017-02-06] MEDS: INSULIN REGULAR 100 UNIT/ML SUBCUT SCH (20:30)
[2017-02-06] MEDS: rOPINIRole 0.25 MG TABLET PO SCH (20:34)
[2017-02-06] MEDS: GABAPENTIN 300 MG CAPSULE PO SCH (20:34)
[2017-02-06] MEDS: METHENAMINE HIPPURATE 1 GM TABLET PO SCH (20:34)
[2017-02-06] MEDS: CHOLECALCIFEROL 1,000 UNIT TABLET PO SCH (20:34)
[2017-02-07] MEDS: CLINDAMYCIN INJ 600 MG in PREMIX 1 EACH IV SCH ×3 (00:10→17:00)
[2017-02-07 05:24] LABS: Basophils % 0.4 % (0.0-0.8); Eosinophils # 0.2 10*3/uL (0.0-0.87); Hematocrit 32.1 VOL% (35.7-47.0); Hemoglobin 10.3 GM/DL (12.0-16.0); Immature Granulocytes % 0.4 %; Immature Granulocytes Absolute 0.03 #; Lymphocytes # 0.9 10*3/uL (1.4-4.0); Lymphocytes % 12.9 % (21.3-54.2); Mean Corpuscular HGB Conc 32.1 GM/DL (32-36); Mean Corpuscular Hemoglobin 30 PG (27-34); Mean Corpuscular Volume 93.6 FL (87-102); Mean Platelet Volume 10.6 FL (9.6-12.0); Monocytes # 0.7 10*3/uL (0.11-0.8); Monocytes % 9.7 % (1.7-12.7); Neutrophils # 5.2 10*3/uL (1.4-7.4); Neutrophils % 73.6 % (38.7-73.9); Platelet Count 188 T/CUMM (130-400); Red Blood Count 3.43 MC/CUMM (3.8-5.5); Red Cell Distribution Width 14.1 % (9.3-17.3)
[2017-02-07 05:56] LABS: Calcium 8.8 MG/DL (8.5-10.1); Osmolality,Calculated 276.1 MOS/KG (273-304); Potassium 4.5 MMOL/L (3.5-5.1)
[2017-02-07 06:07] LABS: Band Neutrophils 2 % (0-10); Eosinophils 2 % (0-10); Hypochromasia 1+; Lymphocytes 9 % (20-55); Microcytosis Slight; Platelet Estimate Adequate; Segmented Neutrophils 74 % (50-85); Total Cells Counted 100
--- NOTE | 2017-02-07 09:06 | Hospitalist Progress Note ---
Assessment and Plan (1) Cellulitis Status: Acute Assessment and plan: We will start empiric antibiotic coverage. We will consult wound care for further recommendations. 02/06-Continue empiric antibiotic coverage. Current Visit: Yes Qualifiers: Site of cellulitis: extremity Site of cellulitis of extremity: lower extremity Laterality: unspecified laterality Qualified Code(s): L03.119 - Cellulitis of unspecified part of limb (2) Acute on chronic renal failure Status: Acute Assessment and plan: BUN and creatinine noted at 34 and 1.60 a moderate change since the previous admission on 01/17 which was noted at 46 and 1.70. We will monitor renal function and avoid nephrotoxic agents. 02/07-BUN and creatinine today at 30 and 1.40. We will continue to monitor and avoid nephrotoxic agents. Will recheck CMP in a.m. Current Visit: No (3) Atrial fibrillation Status: Acute Assessment and plan: Rate is controlled at the time of admission. We will continue to monitor. Current Visit: No Hospitalist: Subjective Interval history: Patient seen and examined, chart reviewed. No significant overnight events reported per staff. Exam - Constitutional Vitals: Period Temp Pulse Resp BP Sys/Clay Pulse Ox Last 24 Hr 97.4 F-97.7 F 67-94 16-31 131-169/66-125 94-100 General appearance: normal weight, no acute distress - Head Head exam: Present: normal inspection, normocephalic, atraumatic - Eye Eye exam: Present: EOMI, conjunctival injection Pupils: Present: CRISTINA, normal accommodation - ENT ENT exam: Present: normal exam, normal external ear exam, normal oropharynx - Neck Neck exam: Present: normal inspection. Absent: lymphadenopathy, meningismus, tenderness, thyromegaly - Respiratory Respiratory exam: Present: prolonged expiratory phase, wheezes - Cardiovascular Cardiovascular exam: Present: regular rate and rhythm. Absent: carotid bruit, diastolic murmur, gallop, JVD, rubs, systolic murmur - GI/Abdominal GI/Abdominal exam: Present: soft - Extremities Exam Extremities exam: Present: edema (+4 edema noted to bilateral lower extremities ; gross erythema.) - Back Exam Back exam: Present: normal inspection - Neurological Exam Neurological exam: Present: alert, oriented X3, CN II-XII intact - Psychiatric Psychiatric exam: Present: normal affect, normal mood - Skin Skin exam: Present: other (Gross erythema noted to bilateral lower extremities) Results - Labs CBC & BMP: 02/07/17 04:14 02/07/17 04:14 Lab Results: I have reviewed the past 24 hour labs
[2017-02-07] MEDS: INSULIN REGULAR 100 UNIT/ML SUBCUT SCH ×4 (09:34→22:24)
[2017-02-07] MEDS: MULTIVITAMIN (CENTRUM) TABLET PO SCH (09:35)
[2017-02-07] MEDS: LEVOTHYROXINE 25 MCG TABLET PO SCH (09:36)
[2017-02-07] MEDS: glipiZIDE 10 MG TABLET PO SCH (09:36)
[2017-02-07] MEDS: MAGNESIUM CHLORIDE 64 MG TABLET PO SCH (09:36)
[2017-02-07] MEDS: PRAVASTATIN 20 MG TABLET PO SCH (09:36)
[2017-02-07] MEDS: GABAPENTIN 300 MG CAPSULE PO SCH ×2 (09:37→22:23)
[2017-02-07] MEDS: CHOLECALCIFEROL 1,000 UNIT TABLET PO SCH ×2 (09:37→22:22)
[2017-02-07] MEDS: PANTOPRAZOLE 40 MG TABLET PO SCH (09:37)
[2017-02-07] MEDS: FUROSEMIDE 40 MG TABLET PO SCH (09:37)
[2017-02-07] MEDS: FERROUS SULFATE 325 MG TABLET PO SCH (09:37)
[2017-02-07] MEDS: DIGOXIN 0.125 MG TABLET PO SCH (09:37)
[2017-02-07] MEDS: OXYBUTYNIN XL 10 MG TABLET PO SCH (09:37)
[2017-02-07] MEDS: CARVEDILOL 25 MG TABLET PO SCH (09:37)
[2017-02-07] MEDS: METHENAMINE HIPPURATE 1 GM TABLET PO SCH ×2 (09:37→22:22)
[2017-02-07] MEDS: CEFTAROLINE 300 MG in SODIUM CHLORIDE 0.9% 100 ML IV SCH ×2 (10:44→13:09)
[2017-02-07] MEDS: rOPINIRole 0.25 MG TABLET PO SCH (22:22)
[2017-02-08] MEDS: CEFTAROLINE 300 MG in SODIUM CHLORIDE 0.9% 100 ML IV SCH ×2 (01:41→14:25)
[2017-02-08] MEDS: CLINDAMYCIN INJ 600 MG in PREMIX 1 EACH IV SCH ×3 (03:02→18:01)
[2017-02-08 06:33] LABS: Basophils % 0.6 % (0.0-0.8); Eosinophils # 0.2 10*3/uL (0.0-0.87); Eosinophils % 3.2 % (0.00-10.9); Hematocrit 32.7 VOL% (35.7-47.0); Hemoglobin 10.4 GM/DL (12.0-16.0); Immature Granulocytes % 0.4 %; Immature Granulocytes Absolute 0.03 #; Lymphocytes # 1.1 10*3/uL (1.4-4.0); Lymphocytes % 15.1 % (21.3-54.2); Mean Corpuscular HGB Conc 31.8 GM/DL (32-36); Mean Corpuscular Hemoglobin 30 PG (27-34); Mean Platelet Volume 10.6 FL (9.6-12.0); Monocytes # 0.7 10*3/uL (0.11-0.8); Monocytes % 10.2 % (1.7-12.7); Neutrophils # 4.9 10*3/uL (1.4-7.4); Neutrophils % 70.5 % (38.7-73.9); Platelet Count 198 T/CUMM (130-400); Red Blood Count 3.48 MC/CUMM (3.8-5.5); Red Cell Distribution Width 14.1 % (9.3-17.3)
[2017-02-08 07:04] LABS: Eosinophils 6 % (0-10); Hypochromasia 1+; Lymphocytes 16 % (20-55); Microcytosis Slight; Platelet Estimate Normal; Segmented Neutrophils 65 % (50-85); Total Cells Counted 100
[2017-02-08 07:06] LABS: Osmolality,Calculated 267.8 MOS/KG (273-304); Potassium 4.1 MMOL/L (3.5-5.1)
[2017-02-08] MEDS: INSULIN REGULAR 100 UNIT/ML SUBCUT SCH ×4 (07:29→21:21)
[2017-02-08] MEDS: CARVEDILOL 25 MG TABLET PO SCH (09:34)
[2017-02-08] MEDS: PRAVASTATIN 20 MG TABLET PO SCH (09:34)
[2017-02-08] MEDS: PANTOPRAZOLE 40 MG TABLET PO SCH (09:34)
[2017-02-08] MEDS: OXYBUTYNIN XL 10 MG TABLET PO SCH (09:34)
[2017-02-08] MEDS: DIGOXIN 0.125 MG TABLET PO SCH (09:34)
[2017-02-08] MEDS: glipiZIDE 10 MG TABLET PO SCH (09:34)
[2017-02-08] MEDS: FUROSEMIDE 40 MG TABLET PO SCH (09:34)
[2017-02-08] MEDS: CHOLECALCIFEROL 1,000 UNIT TABLET PO SCH ×2 (09:34→21:17)
[2017-02-08] MEDS: FERROUS SULFATE 325 MG TABLET PO SCH (09:34)
[2017-02-08] MEDS: MAGNESIUM CHLORIDE 64 MG TABLET PO SCH (09:34)
[2017-02-08] MEDS: GABAPENTIN 300 MG CAPSULE PO SCH ×2 (09:35→21:17)
[2017-02-08] MEDS: METHENAMINE HIPPURATE 1 GM TABLET PO SCH ×2 (09:35→21:17)
[2017-02-08] MEDS: MULTIVITAMIN (CENTRUM) TABLET PO SCH (09:35)
[2017-02-08] MEDS: LEVOTHYROXINE 25 MCG TABLET PO SCH (09:35)
--- NOTE | 2017-02-08 10:26 | Hospitalist Progress Note ---
Assessment and Plan - Time spent with patient Time spent with patient: Less than 30 minutes (1) Cellulitis Status: Acute Assessment and plan: Patient was admitted with lower extremity cellulitis. Continuing the antibiotics at this time. She is improving and is afebrile hopefully we can initiate discharge in the next 24 hours. Current Visit: Yes Qualifiers: Site of cellulitis: extremity Site of cellulitis of extremity: lower extremity Laterality: unspecified laterality Qualified Code(s): L03.119 - Cellulitis of unspecified part of limb (2) CHF (congestive heart failure) Status: Chronic Assessment and plan: She is more dyspneic today. Will diurese gently and will follow-up chest x- ray. I have no prior records that I can locate to establish her prior ejection fraction and LV function. Current Visit: No (3) Atrial fibrillation Status: Chronic Assessment and plan: Rate controlled and no other issues. Continue current regimen. Current Visit: No (4) COPD (chronic obstructive pulmonary disease) Status: Chronic Assessment and plan: She does have an increase in dyspnea. She states that she wears O2 at the correction. We will continue pulmonary toilet, O2 supplementation and nebulizer therapy. Will repeat chest x-ray today as she is having increasing dyspnea. Current Visit: Yes Hospitalist: Subjective Interval history: Chart reviewed and patient been examined. She states that she is having more difficulty with breathing this morning and her O2 sat on 2 L is currently 91%. She denies any chest pain, abdominal pain, nausea, vomiting. Despite her difficulty she states that she would like to go back to the correction. Exam - Constitutional Vitals: Period Temp Pulse Resp BP Sys/Clay Pulse Ox Last 24 Hr 97.4 F-99.1 F 69-94 18-20 110-148/52-86 93-100 General appearance: mild distress - Head Head exam: Present: normocephalic, atraumatic - Eye Eye exam: Present: EOMI Pupils: Present: CRISTINA - ENT ENT exam: Present: normal exam - Neck Neck exam: Present: normal inspection - Respiratory Respiratory exam: Present: clear to auscultation bilaterally. Absent: rales, rhonchi, wheezes - Cardiovascular Cardiovascular exam: Present: irregular rhythm. Absent: systolic murmur, tachycardia - GI/Abdominal GI/Abdominal exam: Present: normal bowel sounds, soft. Absent: mass, tenderness - Extremities Exam Extremities exam: Absent: calf tenderness, edema - Back Exam Back exam: Present: normal inspection - Neurological Exam Neurological exam: Present: alert, CN II-XII intact - Psychiatric Psychiatric exam: Present: normal affect, normal mood, anxious. Absent: agitated - Skin Skin exam: Present: warm, dry. Absent: erythema, rash Results - Labs CBC & BMP: 02/08/17 05:46 02/08/17 05:46
[2017-02-08] MEDS ORDERED: FUROSEMIDE 40 MG/4 ML VIAL IV ONE (10:32)
[2017-02-08] MEDS ORDERED: ALBUTEROL/IPRATROPIUM 3 ML NEB RESP TX PRN (10:33)
--- NOTE | 2017-02-08 11:08 | XRay Report ---
Exam: XR chest 1V Indication: Cardiomegaly, shortness of breath dyspnea Comparison study: 02/06/2017 Findings: Chronic silhouette is enlarged, similar to prior. Left chest pacemaker-defibrillator device and wire leads appear in similar position. Upper lobe pulmonary vasculature does not appear engorged. Diffuse mild interstitial prominence is similar prior may represent a degree of underlying interstitial edema. There is no focal consolidation. There is no pneumothorax or significant pleural effusion. Impression: No significant change. PROCEDURE INTERPRETED AT [facility] DEPARTMENT OF RADIOLOGY Final Report Signed by: Negro Maher
[2017-02-08] MEDS: ALBUTEROL/IPRATROPIUM 3 ML NEB RESP TX SCH ×2 (14:01→22:01)
[2017-02-08] MEDS: rOPINIRole 0.25 MG TABLET PO SCH (21:17)
[2017-02-09] MEDS: CLINDAMYCIN INJ 600 MG in PREMIX 1 EACH IV SCH (01:13)
[2017-02-09] MEDS: CEFTAROLINE 300 MG in SODIUM CHLORIDE 0.9% 100 ML IV SCH (02:11)
[2017-02-09] MEDS: ALBUTEROL/IPRATROPIUM 3 ML NEB RESP TX SCH ×3 (02:12→12:33)
[2017-02-09 06:12] LABS: Basophils % 0.5 % (0.0-0.8); Eosinophils # 0.2 10*3/uL (0.0-0.87); Eosinophils % 4.3 % (0.00-10.9); Hemoglobin 9.9 GM/DL (12.0-16.0); Immature Granulocytes % 0.4 %; Immature Granulocytes Absolute 0.02 #; Lymphocytes # 0.8 10*3/uL (1.4-4.0); Lymphocytes % 14.9 % (21.3-54.2); Mean Corpuscular HGB Conc 30.9 GM/DL (32-36); Mean Corpuscular Hemoglobin 29 PG (27-34); Mean Corpuscular Volume 93.8 FL (87-102); Mean Platelet Volume 10.6 FL (9.6-12.0); Monocytes # 0.6 10*3/uL (0.11-0.8); Neutrophils # 3.9 10*3/uL (1.4-7.4); Neutrophils % 68.9 % (38.7-73.9); Platelet Count 212 T/CUMM (130-400); Red Blood Count 3.41 MC/CUMM (3.8-5.5); Red Cell Distribution Width 14.2 % (9.3-17.3); White Blood Count 5.6 T/CUMM (4-12)
[2017-02-09 06:40] LABS: Osmolality,Calculated 278.1 MOS/KG (273-304); Potassium 4.2 MMOL/L (3.5-5.1)
[2017-02-09] MEDS: INSULIN REGULAR 100 UNIT/ML SUBCUT SCH ×2 (07:03→12:10)
--- NOTE | 2017-02-09 08:36 | Discharge Summary ---
Hospital Course - Hospital Course Hospital Course: 86-year-old white female resident of [facility] who had bilateral lower extremity edema and erythema. Her extremities became red and warm to the touch and she was evaluated in the emergency room where it was felt that she should be admitted for further evaluation and empiric IV antibiotic therapy. She was cultured and blood cultures remain negative throughout. She was placed on empiric IV antibiotics. She remained afebrile throughout her stay and her edema and erythema improved. She continues to have some residual erythema and warmth of her right lower extremity with some chronic skin changes consistent with venous stasis. She did have some shortness of breath and was diuresed gently but there was no significant change in her chest x-ray which essentially revealed chronic changes. She did have venous Doppler studies of her lower extremities while here which revealed no evidence of acute DVT. At this time she is tolerating her diet and p.o. medications, remains afebrile and hemodynamically stable, with improving lower extremity edema and erythema. It is felt that she had reached maximal benefit from hospital stay and can be discharged back to the snf with continued oral antibiotic therapy, local skin/wound care and follow-up with her primary care provider. - Time spent with patient Time with patient DS: Less than 30 minutes Diagnosis - Discharge Diagnosis (1) Cellulitis Status: Acute (2) CHF (congestive heart failure) Status: Chronic (3) Atrial fibrillation Status: Chronic (4) COPD (chronic obstructive pulmonary disease) Status: Chronic Discharge Plan - Discharge Data Disposition: Disch/Xfer to Snf Condition at Discharge: Stable Discharge Diet: diabetic diet Activity: resume usual activities as tolerated Contact your physician if you experience:: fever over 101, Redness or swelling, Shortness of breath, pain uncontrolled by pain medications - Discharge Medications New Albuterol/Ipratropium Neb [Duoneb] 3 ml RESP TX RT Q6H PRN PRN Reason: Shortness Of Breath/Wheezing Clindamycin Cap [Cleocin Cap] 300 mg PO Q6HR capsule Albuterol/Ipratropium Neb [Duoneb] 3 ml RESP TX RT Q6H Amoxicillin/Potassium Clav [Augmentin Xr 1,000-62.5 Tab] 1 each PO Q12H #14 tab.er.12h Continue Insulin Regular [HumuLIN R] 3 - 15 unit SUBCUT ACHS PRN PRN Reason: Glucose Management Magnesium Chloride [Slow Mag] 64 mg PO DAILY Ferrous Sulfate 325 mg PO DAILY Multivitamin [Daily Multiple Vitamin] 1 each PO DAILY Carvedilol 25 mg PO DAILY Gabapentin Cap/Tab [Neurontin Cap/Tab] 300 mg PO BID rOPINIRole [Requip] 0.25 mg PO BEDTIME HYDROcodone/ACETAMIN 7.5-325 [[place] 7.5-325] 1 tablet PO Q6H PRN PRN Reason: Pain Mild (1-3) Furosemide Tab [Lasix Tab] 40 mg PO DAILY #0 Pantoprazole Sodium 40 mg PO DAILY Magnesium Hydroxide Susp [Milk of Magnesia] 30 ml PO Q8H PRN PRN Reason: Constipation Methenamine Hippurate [Hiprex] 1,000 mg PO BID Oxybutynin Chloride [Oxybutynin Chloride ER] 10 mg PO DAILY Digoxin Tab [Lanoxin Tab] 0.125 mg PO DAILY Levothyroxine Sodium 25 mcg PO QAM Pravastatin Sodium 10 mg PO DAILY glipiZIDE [Glipizide] 10 mg PO DAILY Cholecalciferol (Vitamin D3) [Vitamin D3] 2,000 unit PO BID Discontinued Clindamycin HCl [Clindamycin Cap] 300 mg PO Q8HR - Follow Up or Referral Follow Up: PCP, [place] [Other] - 3 Days - Forms/Instructions Additional Discharge Instructions: 1. Continue O2 2 L by nasal cannula continuously. 2. Follow-up with primary care provider at snf in 3 days. 3. Complete antibiotic therapy for 7 more days, continue local skin care and elevation of lower extremities Exam - Constitutional Vitals: Period Temp Pulse Resp BP Sys/Clay Pulse Ox Last 24 Hr 97.2 F-98.4 F 69-96 18-28 115-159/51-80 93-99 General appearance: no acute distress - Head Head exam: Present: normocephalic, atraumatic - Eye Eye exam: Present: EOMI Pupils: Present: CRISTINA - ENT ENT exam: Present: normal exam - Neck Neck exam: Present: normal inspection - Respiratory Respiratory exam: Present: clear to auscultation bilaterally. Absent: rales, rhonchi, wheezes - Cardiovascular Cardiovascular exam: Present: regular rate and rhythm - GI/Abdominal GI/Abdominal exam: Present: normal bowel sounds, soft. Absent: tenderness - Extremities Exam Extremities exam: Present: other (She has trace edema of both lower extremities. There are some chronic skin changes consistent with venous stasis. There is mild erythema with minimal warmth of her right lower extremity ). Absent: calf tenderness - Back Exam Back exam: Present: normal inspection - Neurological Exam Neurological exam: Present: alert, oriented X3, CN II-XII intact. Absent: motor sensory deficit - Psychiatric Psychiatric exam: Present: normal affect, normal mood. Absent: agitated, anxious - Skin Skin exam: Present: warm, dry Discharge Results Procedures and tests throughout hospitalization: Pending Orders 02/06/17 16:16 Blood Culture Stat Labs on day of discharge: Labs from last 24 hours 02/09/17 02/09/17 02/09/17 07:03 05:11 05:11 WBC 5.6 RBC 3.41 L Hgb 9.9 L Hct 32.0 L MCV 93.8 MCH 29 MCHC 30.9 L RDW 14.2 Plt Count 212 MPV 10.6 Neut % (Auto) 68.9 Lymph % (Auto) 14.9 L [place] % (Auto) 11.0 Eos % (Auto) 4.3 Baso % (Auto) 0.5 Neut # (Auto) 3.9 Lymph # (Auto) 0.8 L [place] # (Auto) 0.6 Eos # (Auto) 0.2 Baso # (Auto) 0.0 Immature Gran % 0.4 Nucleated RBC % 0.0 Immature Gran # 0.02 Nucleated RBCs # 0.00 Sodium 135 L Potassium 4.2 Chloride 90 L Carbon Dioxide 36 H Anion Gap 13.2 BUN 36 H Creatinine 1.80 H GFR Calculation 28 BUN/Creatinine Ratio 20.00 Glucose 115 H POC Glucose 102 Calculated Osmolality 278.1 Calcium 9.0 02/08/17 02/08/17 02/08/17 20:22 15:43 11:20 WBC RBC Hgb Hct MCV MCH MCHC RDW Plt Count MPV Neut % (Auto) Lymph % (Auto) [place] % (Auto) Eos % (Auto) Baso % (Auto) Neut # (Auto) Lymph # (Auto) [place] # (Auto) Eos # (Auto) Baso # (Auto) Immature Gran % Nucleated RBC % Immature Gran # Nucleated RBCs # Sodium Potassium Chloride Carbon Dioxide Anion Gap BUN Creatinine GFR Calculation BUN/Creatinine Ratio Glucose POC Glucose 227 H 166 H 247 H Calculated Osmolality Calcium Preliminary micro results at discharge 02/06/17 16:16 Blood Culture - Preliminary Blood No growth at 1 day 02/06/17 16:16 Blood Culture - Preliminary Blood No growth at 1 day - Imaging and Cardiology Procedure: Chest x-ray: report reviewed by me, Ultrasound: report reviewed by me DS: Provider Date of admission: 02/06/17 18:15 Primary care physician: . No PCP Attending physician on admission: Zacarias Padilla DO Discharging clinician: Sharla Desouza Expected date of discharge: 02/09/17
[2017-02-09] MEDS: PRAVASTATIN 20 MG TABLET PO SCH (08:37)
[2017-02-09] MEDS: DIGOXIN 0.125 MG TABLET PO SCH (08:37)
[2017-02-09] MEDS: MULTIVITAMIN (CENTRUM) TABLET PO SCH (08:37)
[2017-02-09] MEDS: glipiZIDE 10 MG TABLET PO SCH (08:37)
[2017-02-09] MEDS: FERROUS SULFATE 325 MG TABLET PO SCH (08:37)
[2017-02-09] MEDS: MAGNESIUM CHLORIDE 64 MG TABLET PO SCH (08:37)
[2017-02-09] MEDS: GABAPENTIN 300 MG CAPSULE PO SCH (08:37)
[2017-02-09] MEDS: OXYBUTYNIN XL 10 MG TABLET PO SCH (08:37)
[2017-02-09] MEDS: METHENAMINE HIPPURATE 1 GM TABLET PO SCH (08:37)
[2017-02-09] MEDS: CARVEDILOL 25 MG TABLET PO SCH (08:37)
[2017-02-09] MEDS: PANTOPRAZOLE 40 MG TABLET PO SCH (08:38)
[2017-02-09] MEDS: CHOLECALCIFEROL 1,000 UNIT TABLET PO SCH (08:38)
[2017-02-09] MEDS: LEVOTHYROXINE 25 MCG TABLET PO SCH (08:38)
[2017-02-09] MEDS: FUROSEMIDE 40 MG TABLET PO SCH (08:38)
[2017-02-09] MEDS ORDERED: CLINDAMYCIN 300 MG CAPSULE PO SCH (12:00)
[2017-02-09 12:24] VITALS: BP 162/79
== END 2017-02-09 12:10 | DRG 603 ==
LOC: EDUNIT# → EDBD → N.ED 14:57 → N.EDINP 18:15 → SUATTDRO 18:15 → N.5E 19:09
PROVIDERS: ADMIT Internal Medicine; ATTEND Hospitalist

== ENCOUNTER 2017-05-31 08:05 | Inpatient (IN) ==
[2017-05-31] MEDS ORDERED: GLUCAGON 1 MG VIAL IM PRN ×2 (08:24→11:53)
[2017-05-31] MEDS ORDERED: DEXTROSE 50% 25 GM/50 ML SYRINGE IV PRN ×2 (08:24→15:30)
[2017-05-31 09:56] LABS: Calcium 8.2 MG/DL (8.5-10.1); Osmolality,Calculated 286.8 MOS/KG (273-304)
[2017-05-31 10:24] LABS: Basophils % 0.3 % (0.0-0.8); Eosinophils # 0.2 10*3/uL (0.0-0.87); Eosinophils % 1.8 % (0.00-10.9); Hematocrit 33.5 VOL% (35.7-47.0); Hemoglobin 10.9 GM/DL (12.0-16.0); Immature Granulocytes % 0.4 %; Immature Granulocytes Absolute 0.04 #; Lymphocytes # 1.2 10*3/uL (1.4-4.0); Lymphocytes % 10.8 % (21.3-54.2); Mean Corpuscular HGB Conc 32.5 GM/DL (32-36); Mean Corpuscular Hemoglobin 30 PG (27-34); Mean Corpuscular Volume 90.5 FL (87-102); Mean Platelet Volume 10.4 FL (9.6-12.0); Monocytes # 0.7 10*3/uL (0.11-0.8); Monocytes % 6.5 % (1.7-12.7); Neutrophils # 8.7 10*3/uL (1.4-7.4); Neutrophils % 80.2 % (38.7-73.9); Platelet Count 221 T/CUMM (130-400); Red Cell Distribution Width 14.4 % (9.3-17.3); White Blood Count 10.9 T/CUMM (4-12)
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
[2017-05-31 10:40] LABS: Apearance,Urine CLEAR (Clear); Bilirubin,Urine Negative (Negative); Blood, Urine Negative (Negative); Glucose,Urine (UA) 50 mg/dL (Negative); Ketones,Urine Negative (Negative); Mucus,Urine Occasional /LPF (Occasional); Nitrite,Urine Negative (Negative); Protein,Urine 30 MG/DL; RBC,Urine 1 /HPF (0-4); Urine Color Straw (Yellow); Urine Specific Gravity 1.006 (1.001-1.035); Urine Urobilinogen < 2.0 EU/DL (0.2-1.0); WBC,Urine 4 /HPF (0-6)
--- NOTE | 2017-05-31 10:40 | XRay Report ---
History is altered mental status Comparison 02/08/2017 The cardiac silhouette is markedly enlarged with pacemaker present There is mild diffuse pulmonary edema without consolidation. Impression: Mild congestive failure PROCEDURE INTERPRETED AT [facility] DEPARTMENT OF RADIOLOGY Final Report Signed by: Dr. Sowmya Del Real
--- NOTE | 2017-05-31 10:47 | XRay Report ---
History is wrist injury and pain Right wrist, 3 views There is diffuse demineralization and degenerative changes. No acute fracture or dislocation is seen Impression: Demineralization and degenerative changes PROCEDURE INTERPRETED AT [facility] DEPARTMENT OF RADIOLOGY Final Report Signed by: Dr. Sowmya Del Real
[2017-05-31] MEDS ORDERED: MAGNESIUM HYDROXIDE SUSP 30 ML UDCUP PO PRN (11:49)
[2017-05-31] MEDS ORDERED: ALBUTEROL/IPRATROPIUM 3 ML NEB RESP TX PRN (11:49)
[2017-05-31] MEDS ORDERED: DEXTROSE 50% 25 GM/50 ML VIAL IV PRN (11:53)
--- NOTE | 2017-05-31 11:58 | Hospitalist History & Physical ---
Assessment and Plan (1) Hypoglycemia Status: Acute Assessment and plan: Per EMS report, the patient was profoundly hypoglycemic with a glucose level recorded at 25 at the time of presentation. The patient was given dextrose 50% and the patient's blood sugar improved to 132. Upon review of the patient's medications, the patient current medication regimen consisted of multiple glycemic agents. We will place all glycemic agents on hold for now. We will order Accu-Cheks with sliding scale coverage and obtain hemoglobin A1c. Current Visit: Yes (2) Acute on chronic renal failure Status: Acute Assessment and plan: The patient's renal function at the time of ED presentation was noted to be less than favorable. The patient's BUN and creatinine was noted at 89/5.40. Upon review of the patient's medical record during the last clinical encounter in February 2017; the patient's BUN and creatinine at the time of discharge was noted at 36/1.80. This is indeed a noted increase. We reviewed the patient's current medication regimen. This change in renal function may be attributed to multiple factors such as dehydration and overdiuresis. In addition, the patient was recently prescribed Augmentin 875 mg twice daily which could possibly also attributed to her declining renal function. We will attempt to gently rehydrate and hold all diuretic agents at this time. We will refrain from the use of all potentially nephrotoxic agents. We will monitor closely and recheck labs in a.m. Current Visit: No (3) Altered mental status Status: Acute Assessment and plan: The patient's altered mental status had resolved at the time of ED presentation. The patient was noted to be verbally appropriate and oriented at the time of examination. The nature of the patient's altered mental status is likely as a result of hypoglycemia; however we will obtain CT head without contrast for good measures. Current Visit: No History of Present Illness Chief complaint: Altered mental status History of present illness: This is a very pleasant 86-year-old female that presented to the ED at [facility] from [facility] this morning for altered mental status.. The patient has a very complex medical history significant for diabetes, cardiomyopathy, congestive heart failure, anemia, erosive gastritis, constipation, atrial fibrillation, chronic obstructive pulmonary disease, cataracts, hypothyroidism, dyslipidemia, stage IV chronic kidney disease, cellulitis, and stasis ulcerations to the bilateral lower extremities. Patient has a surgical history of internal defibrillator placement and hysterectomy. Apparently, the patient experienced an acute change in mental status this morning and became combative requiring restraints. In addition, the patient was given [place] and Ativan by the snf staff which ultimately caused her to become deeply sedated. EMS was summoned. At the time of EMS presentation, random blood glucose level was obtained which was noted at 25. The patient was given dextrose 50% in route to the ED and the patient's mental status improved. The patient was assessed at the time of ED presentation. At the time of presentation, the patient was alert and verbally responsive. The patient was noted to be hypertensive at the time of ED presentation but the blood pressure noted at 173/85. Labs were obtained which were significant for hemoglobin 10.9 , hematocrit 33.5, sodium 130, chloride 96, BUN 89, creatinine 5.40, glucose 108 , and calcium 8.2. Urinalysis was essentially remarkable for urine urobilinogen greater than 2.0, urine RBCs 1, urine WBCs 4, and urine mucus was noted as occasional. X-ray of the right wrist was significant for demineralization and degenerative changes; no acute fracture or dislocation was noted. Chest x-ray significant for mild congestive failure. After brief discussion with both Dr. Wyatt and Dr. Cooper, the patient will be admitted to the hospitalist service for continuation of care. The patient will be admitted to the general medical surgical floor with satellite telemetry monitoring. Home medications have been reviewed and reconciled. CODE STATUS discussed; patient is FULL CODE. Home Medications Medication Instructions Recorded Confirmed Type Carvedilol 25 mg PO DAILY 02/20/15 02/06/17 History Ferrous Sulfate 325 mg PO DAILY 02/20/15 02/06/17 History Gabapentin Cap/Tab [Neurontin 300 mg PO BID 02/20/15 02/06/17 History Cap/Tab] Insulin Regular [HumuLIN R] 3 - 15 unit SUBCUT ACHS PRN 02/20/15 02/06/17 History Magnesium Chloride [Slow Mag] 64 mg PO DAILY 02/20/15 02/06/17 History Multivitamin [Daily Multiple 1 each PO DAILY 02/20/15 02/06/17 History Vitamin] HYDROcodone/ACETAMIN 7.5-325 1 tablet PO Q6H PRN 06/29/15 02/06/17 History [[place] 7.5-325] rOPINIRole [Requip] 0.25 mg PO BEDTIME 06/29/15 02/06/17 History Furosemide Tab [Lasix Tab] 40 mg PO DAILY #0 07/05/15 02/06/17 Rx Cholecalciferol (Vitamin D3) 2,000 unit PO BID 01/15/17 02/06/17 History [Vitamin D3] Digoxin Tab [Lanoxin Tab] 0.125 mg PO DAILY 01/15/17 02/06/17 History Levothyroxine Sodium 25 mcg PO QAM 01/15/17 02/06/17 History Magnesium Hydroxide Susp [Milk of 30 ml PO Q8H PRN 01/15/17 02/06/17 History Magnesia] Methenamine Hippurate [Hiprex] 1,000 mg PO BID 01/15/17 02/06/17 History Oxybutynin Chloride [Oxybutynin 10 mg PO DAILY 01/15/17 02/06/17 History Chloride ER] Pantoprazole Sodium 40 mg PO DAILY 01/15/17 02/06/17 History Pravastatin Sodium 10 mg PO DAILY 01/15/17 02/06/17 History glipiZIDE [Glipizide] 10 mg PO DAILY 01/15/17 02/06/17 History Albuterol/Ipratropium Neb [Duoneb] 3 ml RESP TX RT Q6H 02/09/17 Rx Albuterol/Ipratropium Neb [Duoneb] 3 ml RESP TX RT Q6H PRN 02/09/17 Rx Amoxicillin/Potassium Clav 1 each PO Q12H #14 tab.er.12h 02/09/17 Rx [Augmentin Xr 1,000-62.5 Tab] Clindamycin Cap [Cleocin Cap] 300 mg PO Q6HR capsule 02/09/17 Rx Allergies Allergy/AdvReac Type Severity Reaction Status Date / Time No Known Allergies Allergy Verified 02/06/17 15:03 Medical,Surgical,& Family Hx - Medical History Cardio: History 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), Cardiac Dysrhythmia (a-fib), CHF, CAD, Hypertension, Pacemaker, Cardiovascular Problems (ANGINA) Psychological: History of: Anxiety Disorders Neurology: No history of: Seizures HEENT: History of: Eye Problem (cataracts bilaterally) Endocrine: History of: Diabetes Mellitus (IDDM), Diabetes Mellitus (NIDDM), Dyslipidemia, Thyroid Disorder (hypothyroid) Respiratory: History of: Asthma, COPD, Respiratory Problems Renal: History of: Renal Problems (states she's had problems in past unspecified ) Genitourinary: History of: Recurring Urinary Tract Infections Gastrointestinal: History of: GERD, GI Problems (dysphagia, mild esophagitis) Musculoskeletal: History of: Back/Neck Problems, Musculoskeletal Problems ( general weakness; abnorm gait) Hematology: History of: Anemia, Bleeding Problems ("I bleed easy"), Clotting Problems Other: History of: Miscellaneous Medical Problems (ANEMIA) - Surgical History Cardiac Surgeries: Sugical HX of: Internal Defibrillator Reproductive Surgeries: Surgical HX of;: Gynecologic Surgery, Hysterectomy - Family History Family History: Reports;: Family Cancer (colon-dad), Family Heart Disease (mom) , Family Hypertension (mother) Denies;: Family Diabetes, Family Stroke - Social History Smoking Status: Never smoker Frequency of Alcohol Use: None Type of Drug Use: None Marital Status: Single Lives With:: Alone Functional capacity: independent ambulation 12 point system: reviewed and no additional remarkable complaints except as stated Exam - Constitutional Vitals: Period Temp Pulse Resp BP Sys/Clay Pulse Ox Last 24 Hr 97.0 F-97.0 F 79-79 18-18 173-173/85-85 98 General appearance: normal weight, no acute distress - Head Head exam: Present: normal inspection, normocephalic, atraumatic - Eye Eye exam: Present: EOMI. Absent: conjunctival injection Pupils: Present: CRISTINA, normal accommodation - ENT ENT exam: Present: normal exam, normal external ear exam, normal oropharynx - Neck Neck exam: Present: normal inspection. Absent: lymphadenopathy, meningismus, thyromegaly - Respiratory Respiratory exam: Present: clear to auscultation bilaterally. Absent: rales, rhonchi, stridor, wheezes - Cardiovascular Cardiovascular exam: Present: regular rate and rhythm. Absent: carotid bruit, diastolic murmur, gallop, JVD, rubs, systolic murmur - GI/Abdominal GI/Abdominal exam: Present: normal bowel sounds, soft - Extremities Exam Extremities exam: Present: normal inspection, normal capillary refill, full ROM , other (Skin tear noted to the right upper extremity) - Back Exam Back exam: Present: normal inspection - Neurological Exam Neurological exam: Present: alert, oriented X3, CN II-XII intact - Psychiatric Psychiatric exam: Present: normal affect, normal mood - Skin Skin exam: Present: normal color, warm, dry Results - Labs CBC & BMP: 05/31/17 09:19 05/31/17 09:19 Lab Results: I have reviewed the past 24 hour labs
--- NOTE | 2017-05-31 13:32 | CT Report ---
CT the head without contrast. Indication: Altered mental status. Comparison: September 05, 2015. The basilar artery is tortuous. There is calcific plaque present within the intracranial internal carotid arteries. There is generalized atrophy. The ventricles are symmetric, there is no midline shift. There is no evidence of acute hemorrhage. There are prominent areas of low density in the periventricular white matter, consistent with chronic microvascular ischemia. Possible ischemic areas within the jun. Chronic. 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 No cortical infarcts are visible at this time. The calvarium is intact. There is prominent right frontal sinusitis. Impression: Generalized atrophy. Chronic microvascular ischemic change. No acute intracranial process is seen. There is frontal sinusitis on the right. The CT exam was performed using one or more of the following dose reduction techniques: Automated exposure control, adjustment of the mA and/or kV according to patient size, or use of iterative reconstruction technique. PROCEDURE INTERPRETED AT [facility] DEPARTMENT OF RADIOLOGY Final Report Signed by: Dr. Mayra Del Real
[2017-05-31] MEDS: DEXTROSE 5% 1,000 ML IV SCH (13:54)
[2017-05-31] MEDS: INSULIN REGULAR 100 UNIT/ML SUBCUT SCH ×2 (16:25→21:53)
[2017-05-31 18:48] LABS: Free T4 (Free Thyroxine) 0.78 NG/DL (0.76-1.46); Thyroid Stimulating Hormone 0.758 uIU/ml (0.358-3.74)
--- NOTE | 2017-05-31 19:23 | Event Note ---
Nurse called a critical Dig level of 3.3. Will stop Digoxin at this time and do a repeat serum level in the AM.
--- NOTE | 2017-05-31 19:47 | Ultrasound Report ---
History acute renal failure The right kidney is 7.6 cm in length Left kidney is 8.9 cm in length Cortical echogenicity is at the upper range of normal No hydronephrosis seen bilaterally There is a 1.4 cm cyst in the lower pole of the left kidney. There is an elongated 1.1 x 2.5 cm hypoechoic area consistent with a cyst at the upper medial portion of the right kidney similar on a prior CT of 2009. There is cortical thinning in the right kidney also present on the prior study. Impression: 1. Bilateral renal cysts 2. Borderline renal cortical echogenicity raising question of medical renal disease 3. There is cortical scarring in the right kidney PROCEDURE INTERPRETED AT [facility] DEPARTMENT OF RADIOLOGY Final Report Signed by: Dr. Sowmya Del Real
[2017-05-31] MEDS: METHENAMINE HIPPURATE 1 GM TABLET PO SCH (21:23)
[2017-05-31] MEDS: hydrALAZINE 10 MG TABLET PO SCH (21:23)
[2017-05-31] MEDS: rOPINIRole 0.25 MG TABLET PO SCH (21:23)
[2017-05-31] MEDS: CHOLECALCIFEROL 1,000 UNIT TABLET PO SCH (21:23)
[2017-05-31] MEDS: CARVEDILOL 25 MG TABLET PO SCH (21:23)
[2017-05-31] MEDS: GABAPENTIN 300 MG CAPSULE PO SCH (21:24)
[2017-06-01] MEDS: DEXTROSE 5% 1,000 ML IV SCH (04:28)
[2017-06-01 05:38] LABS: Basophils # 0.1 10*3/uL (0.0-0.2); Basophils % 0.5 % (0.0-0.8); Eosinophils # 0.3 10*3/uL (0.0-0.87); Eosinophils % 3.3 % (0.00-10.9); Hematocrit 28.2 VOL% (35.7-47.0); Hemoglobin 9.2 GM/DL (12.0-16.0); Immature Granulocytes % 0.5 %; Immature Granulocytes Absolute 0.05 #; Lymphocytes # 1.2 10*3/uL (1.4-4.0); Lymphocytes % 11.8 % (21.3-54.2); Mean Corpuscular HGB Conc 32.6 GM/DL (32-36); Mean Corpuscular Hemoglobin 30 PG (27-34); Mean Corpuscular Volume 90.4 FL (87-102); Mean Platelet Volume 10.6 FL (9.6-12.0); Monocytes % 9.5 % (1.7-12.7); Neutrophils # 7.6 10*3/uL (1.4-7.4); Neutrophils % 74.4 % (38.7-73.9); Platelet Count 218 T/CUMM (130-400); Red Blood Count 3.12 MC/CUMM (3.8-5.5); Red Cell Distribution Width 14.5 % (9.3-17.3); White Blood Count 10.2 T/CUMM (4-12)
[2017-06-01 06:18] LABS: Calcium 7.8 MG/DL (8.5-10.1); Osmolality,Calculated 284.4 MOS/KG (273-304); Potassium 4.7 MMOL/L (3.5-5.1)
[2017-06-01] MEDS: INSULIN REGULAR 100 UNIT/ML SUBCUT SCH ×4 (07:30→22:14)
--- NOTE | 2017-06-01 08:19 | Nephrology Consult Note ---
History of Present Illness Chief complaint: Increased BUN and creatinine in the residential patient History of present illness: Ms. Jimenez is a 86 year old female who is admitted yesterday for altered mental status. The patient apparently became very combative at her residential and required sedation. She was found to have a glucose of around 25 in the field at the residential. The patient was also found to have dig toxicity on admission here with a dig level of greater than 4. We were asked see the patient for creatinine of around 5.4 mg per deciliter. Review of lab this past year a few months ago reveals that her creatinine is around 2 mg/dL at baseline. The patient was getting a diuretic in the outpatient setting, she was not on any nonsteroidal anti-inflammatory medications nor was she on SHANE or an angiotensin receptor sharonda. Patient has not received any contrast recently. The patient did have a renal ultrasound that showed some changes consistent with medical renal disease but no hydronephrosis she did have cysts on both kidneys. The patient denies nausea or vomiting. She did eat her entire breakfast this morning. The patient is apparently incontinent of urine. ROS: Head -occasional headaches ENT -occasional sore throat Lymphatics - denies lymphadenopathy Hematology - denies bleeding problems Heart - denies chest pain Lungs - denies shortness of breath Abdomen - denies abdominal pain Musculoskeletal -positive arthritis Skin - denies rash Neurology - denies stroke General -positive fever PE: General: in no acute distress, chronically ill-appearing Eyes: Pupil is round and reactive on the right she has postsurgical changes on the left, conjunctivae are clear ENT: Nose is clear, O/P is benign Neck: Supple, no thyromegaly Lymphatics: No cervical, supraclavicular or axillary adenopathy Heart: Regular rate and rhythm, no edema Lungs: Clear to auscultation anteriorly, chest expansion symmetric Abdomen: Soft, normoactive bowel sounds, no hepatomegaly Musculoskeletal: No joint erythema or effusions or joint asymmetry Skin: Decreased turgor, normal hydration, no rash, she has multiple purpuric changes over her arms Neuro/Psych: Alert and cooperative with no insight Home Medications Medication Instructions Recorded Confirmed Type Carvedilol 25 mg PO DAILY 02/20/15 05/31/17 History Ferrous Sulfate 325 mg PO DAILY 02/20/15 05/31/17 History Gabapentin Cap/Tab [Neurontin 300 mg PO BID 02/20/15 05/31/17 History Cap/Tab] Insulin Regular [HumuLIN R] 3 - 15 unit SUBCUT ACHS PRN 02/20/15 05/31/17 History Magnesium Chloride [Slow Mag] 64 mg PO DAILY 02/20/15 05/31/17 History Multivitamin [Daily Multiple 1 each PO DAILY 02/20/15 05/31/17 History Vitamin] HYDROcodone/ACETAMIN 7.5-325 1 tablet PO Q6H PRN 06/29/15 05/31/17 History [[place] 7.5-325] rOPINIRole [Requip] 0.25 mg PO BEDTIME 06/29/15 05/31/17 History Furosemide Tab [Lasix Tab] 40 mg PO DAILY #0 07/05/15 05/31/17 Rx Cholecalciferol (Vitamin D3) 2,000 unit PO BID 01/15/17 05/31/17 History [Vitamin D3] Digoxin Tab [Lanoxin Tab] 0.125 mg PO DAILY 01/15/17 05/31/17 History Levothyroxine Sodium 25 mcg PO QAM 01/15/17 05/31/17 History Magnesium Hydroxide Susp [Milk of 30 ml PO Q8H PRN 01/15/17 05/31/17 History Magnesia] Methenamine Hippurate [Hiprex] 1,000 mg PO BID 01/15/17 05/31/17 History Oxybutynin Chloride [Oxybutynin 10 mg PO DAILY 01/15/17 05/31/17 History Chloride ER] Pantoprazole Sodium 40 mg PO DAILY 01/15/17 05/31/17 History Pravastatin Sodium 10 mg PO DAILY 01/15/17 05/31/17 History glipiZIDE [Glipizide] 10 mg PO DAILY 01/15/17 05/31/17 History Aspirin 81 mg PO DAILY 05/31/17 05/31/17 History LORazepam TAB [Ativan Tab] 0.5 mg PO BID PRN 05/31/17 05/31/17 History Sertraline [Zoloft] 50 mg PO BEDTIME 05/31/17 05/31/17 History busPIRone [Buspar] 5 mg PO BID 05/31/17 05/31/17 History Allergies Allergy/AdvReac Type Severity Reaction Status Date / Time No Known Allergies Allergy Verified 02/06/17 15:03 Medical,Surgical,& Family Hx - Medical History Cardio: History 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), Cardiac Dysrhythmia (a-fib), CHF, CAD, Hypertension, Pacemaker, Cardiovascular Problems (ANGINA) Psychological: History of: Anxiety Disorders Neurology: No history of: Seizures HEENT: History of: Eye Problem (cataracts bilaterally) Endocrine: History of: Diabetes Mellitus (IDDM), Diabetes Mellitus (NIDDM), Dyslipidemia, Thyroid Disorder (hypothyroid) Respiratory: History of: Asthma, COPD, Respiratory Problems Renal: History of: Renal Problems (states she's had problems in past unspecified ) Genitourinary: History of: Recurring Urinary Tract Infections Gastrointestinal: History of: GERD, GI Problems (dysphagia, mild esophagitis) Musculoskeletal: History of: Back/Neck Problems, Musculoskeletal Problems ( general weakness; abnorm gait) Hematology: History of: Anemia, Bleeding Problems ("I bleed easy"), Clotting Problems Other: History of: Miscellaneous Medical Problems (ANEMIA) - Surgical History Cardiac Surgeries: Sugical HX of: Internal Defibrillator Reproductive Surgeries: Surgical HX of;: Gynecologic Surgery, Hysterectomy - Family History Family History: Reports;: Family Cancer (colon-dad), Family Heart Disease (mom) , Family Hypertension (mother) Denies;: Family Diabetes, Family Stroke - Social History Smoking Status: Former smoker (Smoked most of her life but quit about 3-4 years ago) Frequency of Alcohol Use: None Type of Drug Use: None Exam - Vital Signs Vital signs: Period Temp Pulse Resp BP Sys/Clay Pulse Ox Last 24 Hr 97 F-97.9 F 70-77 18-20 143-192/68-82 93-100 Results - Labs CBC & BMP: 06/01/17 05:08 06/01/17 05:08 Assessment and Plan (1) Acute on chronic renal failure Status: Acute Assessment and plan: I suspect this is related to volume depletion. I agree with IV fluids and holding her diuretic. Will check a post void residual bladder scan for urinary retention and place a Power catheter if she has 300 cc or greater in her bladder. The patient's urinalysis appears fairly unremarkable. Current Visit: No (2) Digoxin toxicity Status: Acute Assessment and plan: Continue IV fluids Current Visit: Yes (3) Hypoglycemia Status: Acute Assessment and plan: Patient's hypoglycemic therapy is being held on a sliding scale monitoring Current Visit: Yes (4) Hyponatremia Status: Acute Assessment and plan: I suspect her initial hyponatremia is related to decreased intake, she seems to be eating better now her sodium did go down to 126 from 130 yesterday this may be reflective of some dilution with her improved intake. We will continue to monitor this. Current Visit: Yes (5) Altered mental status Status: Acute Assessment and plan: This seems to be improving Current Visit: No (6) Anemia Status: Acute Assessment and plan: Patient's hematocrit decreased from around 33% 28% today, this probably reflective of some heme concentration Current Visit: No (7) Diabetes Status: Acute Current Visit: No Qualifiers: Diabetes mellitus type: type 2
[2017-06-01] MEDS ORDERED: DIGOXIN 0.125 MG TABLET PO SCH (09:00)
[2017-06-01] MEDS ORDERED: CARVEDILOL 25 MG TABLET PO SCH (09:00)
[2017-06-01] MEDS: MAGNESIUM CHLORIDE 64 MG TABLET PO SCH (09:29)
[2017-06-01] MEDS: CHOLECALCIFEROL 1,000 UNIT TABLET PO SCH ×2 (09:29→20:01)
[2017-06-01] MEDS: LEVOTHYROXINE 25 MCG TABLET PO SCH (09:29)
[2017-06-01] MEDS: GABAPENTIN 300 MG CAPSULE PO SCH ×2 (09:29→20:02)
[2017-06-01] MEDS: METHENAMINE HIPPURATE 1 GM TABLET PO SCH ×2 (09:29→20:01)
[2017-06-01] MEDS: PRAVASTATIN 20 MG TABLET PO SCH (09:30)
[2017-06-01] MEDS: MULTIVITAMIN (CENTRUM) TABLET PO SCH (09:30)
[2017-06-01] MEDS: FERROUS SULFATE 325 MG TABLET PO SCH (09:30)
[2017-06-01] MEDS: hydrALAZINE 10 MG TABLET PO SCH ×3 (09:30→20:02)
[2017-06-01] MEDS: PANTOPRAZOLE 40 MG TABLET PO SCH (09:31)
[2017-06-01] MEDS: OXYBUTYNIN XL 5 MG TABLET PO SCH (09:31)
[2017-06-01] MEDS: CARVEDILOL 25 MG TABLET PO SCH ×2 (09:31→20:01)
[2017-06-01 09:58] LABS: Apearance,Urine CLEAR (Clear); Bacteria,Urine Occasional /HPF (Few); Bilirubin,Urine Negative (Negative); Blood, Urine Negative (Negative); Glucose,Urine (UA) 50 mg/dL (Negative); Ketones,Urine Negative (Negative); Nitrite,Urine Negative (Negative); Protein,Urine Negative; RBC,Urine 1 /HPF (0-4); Urine Color Straw (Yellow); Urine Specific Gravity 1.004 (1.001-1.035); Urine Urobilinogen < 2.0 EU/DL (0.2-1.0); WBC,Urine 5 /HPF (0-6)
[2017-06-01] MEDS ORDERED: ACETAMINOPHEN 325 MG TABLET PO PRN (10:19)
--- NOTE | 2017-06-01 11:50 | Hospitalist Progress Note ---
Assessment and Plan (1) Altered mental status Status: Acute Assessment and plan: Much improved, patient is alert, oriented x3. CT head showed no acute changes.Blood sugar has improved. Current Visit: Yes (2) Acute renal failure Status: Acute Assessment and plan: Slowly improving. Nephrology is following. Renal Uss report noted. Plan continue with IVF and Nephrology's recommendations Current Visit: Yes (3) Digoxin toxicity Status: Acute Assessment and plan: Levels are coming down. Continue to follow Current Visit: Yes (4) Hyponatremia Status: Acute Assessment and plan: we have started saline fluid, follow bmp in am Current Visit: Yes (5) Diabetes Status: Acute Assessment and plan: with hypoglycemic episodes. Continue current regime. [id number] Current Visit: No Qualifiers: Diabetes mellitus type: type 2 (6) Hypoglycemia Status: Acute Assessment and plan: improved on IV glucose Current Visit: Yes (7) Anemia Status: Acute Assessment and plan: H/H-stable Current Visit: No Hospitalist: Subjective Interval history: Patient seen this am. She was more awake, lucid and complained of soreness in her legs. Exam - Constitutional Vitals: Period Temp Pulse Resp BP Sys/Clay Pulse Ox Last 24 Hr 97 F-97.9 F 70-77 18-20 143-192/68-82 93-100 General appearance: no acute distress, over weight - Head Head exam: Present: normal inspection - Respiratory Respiratory exam: Present: clear to auscultation bilaterally - Cardiovascular Cardiovascular exam: Present: regular rate and rhythm - GI/Abdominal GI/Abdominal exam: Present: normal bowel sounds - Extremities Exam Extremities exam: Present: other (bruises on her UE and LE) - Neurological Exam Neurological exam: Present: alert, oriented X3 Results - Labs CBC & BMP: 06/01/17 05:08 06/01/17 05:08 Lab Results: I have reviewed the past 24 hour labs
[2017-06-01] MEDS: DEXTROSE 5% NACL 0.9% 1,000 ML IV SCH (13:46)
[2017-06-01] MEDS: ENOXAPARIN 30 MG/0.3 ML SYRINGE SUBCUT SCH (15:16)
[2017-06-01] MEDS: rOPINIRole 0.25 MG TABLET PO SCH (20:01)
[2017-06-02] MEDS: DEXTROSE 5% NACL 0.9% 1,000 ML IV SCH (03:30)
[2017-06-02 06:11] LABS: Basophils % 0.4 % (0.0-0.8); Eosinophils # 0.3 10*3/uL (0.0-0.87); Eosinophils % 3.4 % (0.00-10.9); Hematocrit 27.2 VOL% (35.7-47.0); Hemoglobin 8.8 GM/DL (12.0-16.0); Immature Granulocytes % 0.4 %; Immature Granulocytes Absolute 0.04 #; Lymphocytes # 1.2 10*3/uL (1.4-4.0); Lymphocytes % 13.5 % (21.3-54.2); Mean Corpuscular HGB Conc 32.4 GM/DL (32-36); Mean Corpuscular Hemoglobin 29 PG (27-34); Mean Corpuscular Volume 90.1 FL (87-102); Mean Platelet Volume 10.6 FL (9.6-12.0); Monocytes # 1.1 10*3/uL (0.11-0.8); Neutrophils # 6.3 10*3/uL (1.4-7.4); Neutrophils % 70.3 % (38.7-73.9); Platelet Count 199 T/CUMM (130-400); Red Blood Count 3.02 MC/CUMM (3.8-5.5); Red Cell Distribution Width 14.3 % (9.3-17.3); White Blood Count 8.9 T/CUMM (4-12)
[2017-06-02 06:40] LABS: Calcium 8.1 MG/DL (8.5-10.1); Osmolality,Calculated 290.7 MOS/KG (273-304); Potassium 5.1 MMOL/L (3.5-5.1)
[2017-06-02] MEDS: LEVOTHYROXINE 25 MCG TABLET PO SCH (06:50)
[2017-06-02] MEDS ORDERED: SODIUM CHLORIDE 0.9% 1,000 ML IV SCH (10:00)
[2017-06-02] MEDS: FERROUS SULFATE 325 MG TABLET PO SCH (10:27)
[2017-06-02] MEDS: PRAVASTATIN 20 MG TABLET PO SCH (10:27)
[2017-06-02] MEDS: GABAPENTIN 300 MG CAPSULE PO SCH ×2 (10:28→20:46)
[2017-06-02] MEDS: MULTIVITAMIN (CENTRUM) TABLET PO SCH (10:28)
[2017-06-02] MEDS: MAGNESIUM CHLORIDE 64 MG TABLET PO SCH (10:28)
[2017-06-02] MEDS: PANTOPRAZOLE 40 MG TABLET PO SCH (10:28)
[2017-06-02] MEDS: CHOLECALCIFEROL 1,000 UNIT TABLET PO SCH ×2 (10:28→20:46)
[2017-06-02] MEDS: OXYBUTYNIN XL 5 MG TABLET PO SCH (10:28)
[2017-06-02] MEDS: CARVEDILOL 25 MG TABLET PO SCH ×2 (10:28→20:46)
[2017-06-02] MEDS: ENOXAPARIN 30 MG/0.3 ML SYRINGE SUBCUT SCH (10:29)
[2017-06-02] MEDS: METHENAMINE HIPPURATE 1 GM TABLET PO SCH ×2 (10:29→20:46)
[2017-06-02] MEDS: hydrALAZINE 10 MG TABLET PO SCH ×3 (10:29→20:45)
[2017-06-02] MEDS: INSULIN REGULAR 100 UNIT/ML SUBCUT SCH ×4 (10:29→20:46)
--- NOTE | 2017-06-02 12:34 | Hospitalist Progress Note ---
Assessment and Plan (1) Altered mental status Status: Acute Assessment and plan: Much improved, patient is alert, oriented x3. CT head showed no acute changes.Blood sugar has improved. possible dc in am PT consult Current Visit: Yes (2) Acute renal failure Status: Acute Assessment and plan: Slowly improving. Nephrology is following. Renal Uss report noted. Plan continue with IVF and Nephrology's recommendations Current Visit: Yes (3) Digoxin toxicity Status: Acute Assessment and plan: Levels are coming down. Continue to follow Current Visit: Yes (4) Hyponatremia Status: Acute Assessment and plan: slowly improving, follow bmp in am Current Visit: Yes (5) Diabetes Status: Acute Assessment and plan: with hypoglycemic episodes- hypoglycemic episodes improved plan change IVF to normal saline Continue current regime. [id number] Current Visit: No Qualifiers: Diabetes mellitus type: type 2 (6) Hypoglycemia Status: Acute Assessment and plan: improved. Plan DC IV glucose infusion continue accuchecks Current Visit: Yes (7) Anemia Status: Acute Assessment and plan: H/H-stable Current Visit: No Hospitalist: Subjective Interval history: Patient seen this am, she complains of soreness on her UE.Her blood sugar is improving. Exam - Constitutional Vitals: Period Temp Pulse Resp BP Sys/Clay Pulse Ox Last 24 Hr 97.4 F-97.9 F 68-75 13-20 115-174/61-112 94-99 General appearance: no acute distress - Head Head exam: Present: normal inspection - Respiratory Respiratory exam: Present: clear to auscultation bilaterally - Cardiovascular Cardiovascular exam: Present: regular rate and rhythm - GI/Abdominal GI/Abdominal exam: Present: normal bowel sounds - Extremities Exam Extremities exam: Present: other (bruises on the extremeties) - Neurological Exam Neurological exam: Present: alert, oriented X3 Results - Labs CBC & BMP: 06/02/17 04:30 06/02/17 04:30 Lab Results: I have reviewed the past 24 hour labs
--- NOTE | 2017-06-02 13:09 | Nephrology Progress Note ---
Nephrology - PN: Subj Interval history: Patient today complains of feeling poorly. She is less responsive than she was yesterday she was holding her eyes closed throughout most of the interview today. Physical exam general the patient is chronically ill-appearing, heart is regular rate and rhythm, she has no pitting edema, lungs are coarse with some wheezing, abdomen is soft with positive bowel sounds Assessment/plan 1. Acute renal failure-this patient's creatinine is 5 mg/dL this is down from 5.4 on presentation, her urine output is good at around 2 L past 24 hours, at this point I think the patient is adequately volume resuscitated and in fact may be getting a little bit on the positive fluid balance side with some wheezing. I am going to hold her IV fluids for now. 2. Altered mental status-patient's digoxin level remains elevated at 3 I would wonder if this is contributing to her altered mentation 3. Diabetes mellitus 4. Dig toxicity 5. Hyponatremia-patient's sodium is 131 this is improved from 126 yesterday Exam (PN)-Nephrology - Vital Signs Vital signs: Period Temp Pulse Resp BP Sys/Clay Pulse Ox Last 24 Hr 97.4 F-97.9 F 68-75 13-20 115-174/61-112 94-99 - Lab 06/02/17 04:30 06/02/17 04:30 Most recent lab results Calcium 8.1 MG/DL (8.5-10.1) L 06/02/17 04:30 Assessment and Plan (1) Acute on chronic renal failure Status: Acute Assessment and plan: I suspect this is related to volume depletion. I agree with IV fluids and holding her diuretic. Will check a post void residual bladder scan for urinary retention and place a Power catheter if she has 300 cc or greater in her bladder. The patient's urinalysis appears fairly unremarkable. Current Visit: No (2) Digoxin toxicity Status: Acute Assessment and plan: Continue IV fluids Current Visit: Yes (3) Hypoglycemia Status: Acute Assessment and plan: Patient's hypoglycemic therapy is being held on a sliding scale monitoring Current Visit: Yes (4) Hyponatremia Status: Acute Assessment and plan: I suspect her initial hyponatremia is related to decreased intake, she seems to be eating better now her sodium did go down to 126 from 130 yesterday this may be reflective of some dilution with her improved intake. We will continue to monitor this. Current Visit: Yes (5) Altered mental status Status: Acute Assessment and plan: This seems to be improving Current Visit: No (6) Anemia Status: Acute Assessment and plan: Patient's hematocrit decreased from around 33% 28% today, this probably reflective of some heme concentration Current Visit: No (7) Diabetes Status: Acute Current Visit: No Qualifiers: Diabetes mellitus type: type 2
[2017-06-02] MEDS: ZINC OXIDE PASTE 113 GM TUBE TOP SCH ×2 (17:56→20:48)
[2017-06-02] MEDS: rOPINIRole 0.25 MG TABLET PO SCH (20:45)
[2017-06-03] MEDS: LEVOTHYROXINE 25 MCG TABLET PO SCH (06:22)
--- NOTE | 2017-06-03 07:19 | Nephrology Progress Note ---
Nephrology - PN: Subj Interval history: Patient complains of being sore all over. Review of systems pulmonary-patient feels like she is not getting her breath is good if she should Physical exam general the patient's moaning intermittently, heart is regular rate and rhythm, she has no pitting edema, lungs are clear to auscultation anteriorly, abdomen is soft with positive bowel sounds, musculoskeletal-she moans out when palpated for pretibial edema Assessment/plan 1. Acute renal failure on chronic renal failure-patient's urine output was improved yesterday, will recheck a BMP in the morning, I am also going to check a CPK 2. Digoxin toxicity 3. Diabetes mellitus-this is controlled Exam (PN)-Nephrology - Vital Signs Vital signs: Period Temp Pulse Resp BP Sys/Clay Pulse Ox Last 24 Hr 97.4 F-98 F 70-89 16-20 125-161/53-70 93-100 - Lab 06/02/17 04:30 06/02/17 04:30 Most recent lab results Calcium 8.1 MG/DL (8.5-10.1) L 06/02/17 04:30 Assessment and Plan (1) Acute on chronic renal failure Status: Acute Assessment and plan: I suspect this is related to volume depletion. I agree with IV fluids and holding her diuretic. Will check a post void residual bladder scan for urinary retention and place a Power catheter if she has 300 cc or greater in her bladder. The patient's urinalysis appears fairly unremarkable. Current Visit: No (2) Digoxin toxicity Status: Acute Assessment and plan: Continue IV fluids Current Visit: Yes (3) Hypoglycemia Status: Acute Assessment and plan: Patient's hypoglycemic therapy is being held on a sliding scale monitoring Current Visit: Yes (4) Hyponatremia Status: Acute Assessment and plan: I suspect her initial hyponatremia is related to decreased intake, she seems to be eating better now her sodium did go down to 126 from 130 yesterday this may be reflective of some dilution with her improved intake. We will continue to monitor this. Current Visit: Yes (5) Altered mental status Status: Acute Assessment and plan: This seems to be improving Current Visit: No (6) Anemia Status: Acute Assessment and plan: Patient's hematocrit decreased from around 33% 28% today, this probably reflective of some heme concentration Current Visit: No (7) Diabetes Status: Acute Current Visit: No Qualifiers: Diabetes mellitus type: type 2
[2017-06-03] MEDS: GABAPENTIN 300 MG CAPSULE PO SCH (09:12)
[2017-06-03] MEDS: CHOLECALCIFEROL 1,000 UNIT TABLET PO SCH (09:12)
[2017-06-03] MEDS: FERROUS SULFATE 325 MG TABLET PO SCH (09:12)
[2017-06-03] MEDS: OXYBUTYNIN XL 5 MG TABLET PO SCH (09:13)
[2017-06-03] MEDS: CARVEDILOL 25 MG TABLET PO SCH (09:13)
[2017-06-03] MEDS: PRAVASTATIN 20 MG TABLET PO SCH (09:13)
[2017-06-03] MEDS: MAGNESIUM CHLORIDE 64 MG TABLET PO SCH (09:15)
[2017-06-03] MEDS: MULTIVITAMIN (CENTRUM) TABLET PO SCH (09:15)
[2017-06-03] MEDS: ZINC OXIDE PASTE 113 GM TUBE TOP SCH (09:15)
[2017-06-03] MEDS: METHENAMINE HIPPURATE 1 GM TABLET PO SCH (09:15)
[2017-06-03] MEDS: hydrALAZINE 10 MG TABLET PO SCH (09:15)
[2017-06-03] MEDS: INSULIN REGULAR 100 UNIT/ML SUBCUT SCH ×2 (09:15→12:20)
[2017-06-03] MEDS: PANTOPRAZOLE 40 MG TABLET PO SCH (09:15)
[2017-06-03] MEDS: ENOXAPARIN 30 MG/0.3 ML SYRINGE SUBCUT SCH ×2 (09:20→09:39)
--- NOTE | 2017-06-03 10:52 | Discharge Summary ---
<Vernon Jimenes - Last Filed: 06/03/17 10:42> Hospital Course - Hospital Course Hospital Course: Ms. Jimenez is 86-year-old female who presented to the ED on 05/31/2017 with altered mental status and acute on chronic renal failure. Patient also found to be hypoglycemic and to have digoxin toxicity. She is admitted to the hospital medicine service and started on IV fluid hydration while her digoxin was held. Patient was started on IV glucose infusion. Nephrology was consulted to assist with renal management. Head CT on admission was negative for any acute intracranial process. Patient did have generalized atrophy and chronic microvascular ischemic change. Patient showed gradual improvement with IV fluids and medication adjustment. The remainder of the hospital course was relatively uncomplicated highlighted by management of patient's chronic conditions including diabetes which was treated with sliding scale insulin therapy. Urine output is much improved. At this time patient has reached maximum benefit from hospitalization and is stable for discharge. She is to follow-up with her PCP in 1-2 weeks as well as with nephrology.Family members request to give tylenol only for pain, they feel opoiods make her too drowsy.We will continue to hold digoxin and Lasix for now. We will give some ultram and reduce Neurontin dose, her renal status has worsened, She will dc on moderate dose SSC with regular insulin. - Time spent with patient Time with patient DS: Greater than 30 minutes Discharge Plan - Discharge Data Disposition: Disch/Xfer to Snf - Discharge Medications New Acetaminophen Tab [Tylenol Tab] 650 mg PO Q4H PRN tablet PRN Reason: Fever, Headache, Mild Pain Albuterol/Ipratropium Neb [Duoneb] 3 ml RESP TX RT Q6H PRN PRN Reason: Shortness Of Breath/Wheezing Gabapentin Cap/Tab [Neurontin Cap/Tab] 150 mg PO BEDTIME #20 capsule hydrALAZINE TAB [Apresoline Tab] 10 mg PO TID #90 tablet traMADol TAB [Ultram] 50 mg PO Q6H PRN #20 tablet PRN Reason: Pain Moderate (4-7) Zinc Oxide Paste [Desitin Paste] 1 applic TOP BID applic Insulin Regular [HumuLIN R] See Protocol SUBCUT ACHS unit Enoxaparin [Lovenox] 30 mg SUBCUT Q24H syringe Multivitamin (Centrum) [Centrum Tab] 1 tablet PO DAILY tablet Continue Insulin Regular [HumuLIN R] 3 - 15 unit SUBCUT ACHS PRN PRN Reason: Glucose Management Magnesium Chloride [Slow Mag] 64 mg PO DAILY Ferrous Sulfate 325 mg PO DAILY Multivitamin [Daily Multiple Vitamin] 1 each PO DAILY Carvedilol 25 mg PO DAILY rOPINIRole [Requip] 0.25 mg PO BEDTIME Pantoprazole Sodium 40 mg PO DAILY Methenamine Hippurate [Hiprex] 1,000 mg PO BID Oxybutynin Chloride [Oxybutynin Chloride ER] 10 mg PO DAILY Levothyroxine Sodium 25 mcg PO QAM busPIRone [Buspar] 5 mg PO BID Aspirin 81 mg PO DAILY Pravastatin Sodium 10 mg PO DAILY Cholecalciferol (Vitamin D3) [Vitamin D3] 2,000 unit PO BID Discontinued Gabapentin Cap/Tab [Neurontin Cap/Tab] 300 mg PO BID HYDROcodone/ACETAMIN 7.5-325 [[place] 7.5-325] 1 tablet PO Q6H PRN PRN Reason: Pain Mild (1-3) Furosemide Tab [Lasix Tab] 40 mg PO DAILY #0 Magnesium Hydroxide Susp [Milk of Magnesia] 30 ml PO Q8H PRN PRN Reason: Constipation Digoxin Tab [Lanoxin Tab] 0.125 mg PO DAILY LORazepam TAB [Ativan Tab] 0.5 mg PO BID PRN PRN Reason: Anxiety glipiZIDE [Glipizide] 10 mg PO DAILY Sertraline [Zoloft] 50 mg PO BEDTIME - Follow Up or Referral - Forms/Instructions Exam - Constitutional Vitals: Period Temp Pulse Resp BP Sys/Clay Pulse Ox Last 24 Hr 97.4 F-98.0 F 70-89 16-22 125-161/53-70 93-100 Discharge Results Procedures and tests throughout hospitalization: Pending Orders 05/31/17 17:56 Blood Culture Routine 06/04/17 04:00 CPK [Creatine Kinase Total] IN AM Renal Function Panel IN AM Labs on day of discharge: Labs from last 24 hours 06/03/17 06/03/17 06/02/17 10:50 08:06 20:09 POC Glucose 306 H 140 H 367 H 06/02/17 06/02/17 16:28 11:19 POC Glucose 207 H 191 H Preliminary micro results at discharge 05/31/17 17:56 Blood Culture - Preliminary Blood No growth at 1 day 05/31/17 17:56 Blood Culture - Preliminary Blood No growth at 1 day DS: Provider Date of admission: 05/31/17 10:38 Primary care physician: Merlin Gaspar Attending physician on admission: Guadalupe Cooper MD Consults: 05/31/17 17:16 Consult to Physician [CONS] Routine Comment: [facility] Consulting Provider: Jimmy Houser Consult to Specialist Group: Nephrology When should Consulting Provider be notified: Now Person Notified: Dr. Houser Date Notified: 05/31/17 Time Notified: 18:10 06/02/17 12:34 Consult to Physical Therapy [CONS] Routine Reason for Physical Therapy: Evaluate and Treat Discharging clinician: Vernon MCCORMICK Expected date of discharge: 06/03/17 <Guadalupe Cooper - Last Filed: 06/03/17 12:22> Hospital Course - Time spent with patient Time with patient DS: Greater than 30 minutes Diagnosis - Discharge Diagnosis (1) Altered mental status Status: Acute (2) Acute renal failure Status: Acute (3) Digoxin toxicity Status: Acute (4) Hyponatremia Status: Acute (5) Diabetes Status: Acute (6) Hypoglycemia Status: Acute (7) Anemia Status: Acute Discharge Plan - Discharge Data Condition at Discharge: Stable Discharge Diet: advance to your usual diet Activity: resume usual activities as tolerated Exam - Constitutional General appearance: no acute distress - Head Head exam: Present: normal inspection - Respiratory Respiratory exam: Present: clear to auscultation bilaterally - GI/Abdominal GI/Abdominal exam: Present: normal bowel sounds - Extremities Exam Extremities exam: Present: normal inspection - Neurological Exam Neurological exam: Present: alert, oriented X3
[2017-06-03 11:05] VITALS: BP 149/67
== END 2017-06-03 13:35 | DRG 683 ==
LOC: N.ED 08:05 → N.EDINP 10:38 → N.4E 12:20
PROVIDERS: ADMIT Internal Medicine; ATTEND Internal Medicine